=== PATIENT | male | born 1965 | race Caucasian/White ===

== ENCOUNTER 2020-04-06 09:08 | Emergency (ER) | payer OTHER, MEDICAID, SELFPAY ==
[2020-04-06 09:30] VITALS: BP 171/103; PULSE 91; RESP 17; TEMP 36.8; O2SAT 97; BMI 36.5
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
[2020-04-06 10:25] LABS: Add Manual Diff / Slide Review NO; Basophils Absolute Auto 100 /uL (0-100); Basophils Percent Auto 1.1 % (0-2); Eosinophils Absolute Auto 200 /uL (0-450); Eosinophils Percent Auto 1.7 % (2-4); Hematocrit 40.3 % (41-53); Hemoglobin 13.7 g/dL (13.5-17.5); Lymphocytes Absolute Auto 2000 /uL (1100-4500); Lymphocytes Percent Auto 21.5 % (25-40); Mean Corpuscular HGB Conc 33.9 % (30-36); Mean Corpuscular Hemoglobin 31.8 PG (26-34); Mean Corpuscular Volume 93.8 fL (80-100); Monocytes Absolute Auto 700 /uL (0-900); Monocytes Percent Auto 7.1 % (3-14); Neutrophils Absolute Auto 6300 /uL (1500-7000); Neutrophils Percent Auto 68.6 % (50-75); Platelet Count 262 X10^3/uL (150-400); Red Cell Distribution Width 14.3 % (11.6-14.8); White Blood Cell Count 9.2 X10^3/uL (4.5-11.0)
[2020-04-06] MEDS: VANCOMYCIN 1,000 MG/200 ML PIGGYBACK 200 MG IV (10:28)
[2020-04-06 10:30] VITALS: BP 170/96; PULSE 94; RESP 18; O2SAT 99
[2020-04-06 10:38] LABS: Lactate (Lactic Acid) 0.7 mmol/L (0.7-2.1)
[2020-04-06 10:39] LABS: Alanine Aminotransferase 17 IU/L (<50); Albumin 4.1 g/dL (3.5-5.0); Albumin Globulin Ratio 1.2 (1.0-2.8); Alkaline Phosphatase 105 U/L (38-126); Aspartate Aminotransferase 27 IU/L (17-59); BUN Creatinine Ratio 19.5 (6-22); Bilirubin Total 0.8 mg/dL (0.2-1.3); Blood Urea Nitrogen 15 mg/dL (9-20); C-Reactive Protein Quant 2.5 mg/dL (<1.0); Calcium 9.7 mg/dL (8.4-10.2); Carbon Dioxide 28 mmol/L (22-32); Chloride 106 mmol/L (98-107); Estimated Glomerular Filt Rate > 60.0 mL/min (>60); Globulin 3.5 g/dL (1.7-4.1); Glucose 103 mg/dL (70-100); HEMOLYSIS < 15 (0-50); Lipase 30 U/L (23-300); Potassium 3.7 mmol/L (3.4-5.1); Sodium 137 mmol/L (137-145); Total Protein 7.6 g/dL (6.3-8.2)
[2020-04-06 10:51] LABS: Procalcitonin < 0.05 ng/mL (<0.5)
[2020-04-06 10:54] LABS: Erythrocyte Sedimentation Rate 38 MM/HR (0-15)
[2020-04-06 11:30] VITALS: BP 161/89; PULSE 89; RESP 18; O2SAT 98
[2020-04-06 12:10] VITALS: BP 157/89; PULSE 87; RESP 17; O2SAT 98
--- NOTE | 2020-04-06 12:58 | PC.NURSE ---
1200 Patient up pacing in room, he states he cannot stay for admission he needs to smoke first. Also reports concerns about dog and I need to give my mom my keys, she's waiting out in the car. I informed him that he will need to have IV removed and check back in if he decides to leave the department. I also offered nicotine patch, and to give his keys to his mother in the parking lot. He refuses to stay. I informed him of need to sign AMA paperwork and went to inform Dr. Soares. Shortly after this, Dr. Soares was in room discussing AMA.
== END 2020-04-06 12:15 | disposition left against medical advice (07) ==
LOC: ED 11:16 → AC 12:04
PROVIDERS: Emergency Provider Emergency Medicine; Referring Provider Emergency Medicine
DX: L03.114 Cellulitis of left upper limb (principal)
CPT/HCPCS: 36415; 73130; 80053; 83605; 83690; 84145; 85025; 85651; 86140; 87040; 99281

== ENCOUNTER 2020-04-07 09:24 | Inpatient (IN) | payer OTHER, MEDICAID, SELFPAY ==
[2020-04-07 09:31] VITALS: BP 152/95; PULSE 104; RESP 16; TEMP 36.4; O2SAT 97; BMI 36.5
--- NOTE | 2020-04-07 09:44 | ED_ITS ---
HPI - General Adult General Chief complaint: Extremity Injury, Upper Stated complaint: Left hand issue Time Seen by Provider: 04/07/20 09:36 Source: patient Mode of arrival: Ambulatory Limitations: no limitations History of Present Illness HPI narrative: 54-year-old male who I evaluated in the emergency department y esterday for a left hand infection after injecting himself with heroin couple days prior who initially was going to be admitted for IV antibiotics within left against medical advice returns this morning stating that he is willing to be admitted today. He reports that the pain in his left hand has actually increased since the visit yesterday. The swelling has moved up his arm. Related Data Home Medications Medication Instructions Recorded Confirmed amlodipine [Norvasc] 10 mg PO DAILY 04/06/20 04/06/20 levothyroxine 200 mcg PO DAILY 04/06/20 04/06/20 methadone 140 mg PO DAILY 04/06/20 04/06/20 Allergies Allergy/AdvReac Type Severity Reaction Status Date / Time No Known Allergies Allergy Verified 04/06/20 09:40 Review of Systems Constitutional Constitutional: Denies fever(s) and Denies headache(s) ENT Ears, Nose, Mouth, and Throat: Denies headache(s) Cardiovascular Cardiovascular: Denies chest pain and Denies dyspnea Respiratory Respiratory: Denies dyspnea Gastrointestinal Gastrointestinal: Denies abdominal pain, Denies nausea and Denies vomiting Musculoskeletal Musculoskeletal: Reports tingling (Left hand) Comments: Left hand pain and swelling Integumentary/Breasts Comments: Redness to the left hand Neurologic Neurologic: Denies headache(s) and Reports tingling (Left hand) Hematologic/Lymphatic Hematologic/Lymphatic: Denies easy bleeding and Denies easy bruising Allergic/Immunologic Allergic/Immunologic: Denies urticaria Patient History Medical History Chronic kidney disease Drug abuse Hypothyroid Social History Smoking Status: Current every day smoker alcohol intake: never Smoking Status: Current every day smoker tobacco type: cigarettes alcohol intake frequency: other Substance Use Type: marijuana, heroin and amphetamines Exam Initial Vital Signs Initial Vital Signs: Vital Signs Temperature 97.5 F L 04/07/20 09:31 Pulse Rate 104 H 04/07/20 09:31 Respiratory Rate 16 04/07/20 09:31 Blood Pressure 152/95 H 04/07/20 09:31 Pulse Oximetry 97 04/07/20 09:31 Const General: comfortable Limitations: mental status not altered HENMT Head: normal to inspection and normocephalic Resp Effort & Inspection: normal respiratory effort Auscultation: clear to auscultation bilaterally Cardio Rate: tachycardic Rhythm: regular rhythm Pulses: radial pulses present on the left Skin Other: Redness in his left hand appears very similar to what it did yesterday. Mostly located on the dorsum along the fingers and hand of the thumb index and ring finger. Does have swelling that is now extending up to the mid forearm were yesterday was just proximal to the wrist. Neuro Sensory Exam: no sensory deficits noted Extrem General: edema Other: Redness and swelling of left hand Psych Appearance: grossly normal and disheveled Course Orders Ordered: ED Orders 04/07/20 10:05 C-Reactive Protein Quant Stat COVID19 Stat Complete Blood Count AUTO DIFF Stat Comprehensive Metabolic Panel Stat Erythrocyte Sedimentation Rate Stat Lactate (Lactic Acid) Stat Lipase Stat Procalcitonin Stat 04/07/20 10:54 Consult to Orthopedic Surgery Stat Sodium Chloride (Normal Saline 0.9%) 1,000 mls @ 125 mls/hr IV CONT PRIMO Last Infusion: 04/07/20 12:20 Dose: 125 mls/hr Documented by: Infusion: 04/07/20 11:57 Dose: 0 mls/hr Documented by: Admin: 04/07/20 10:18 Dose: 125 mls/hr Documented by: LENNY Discontinued Medications Ceftriaxone Sodium/Dextrose (Rocephin) 1 gm in 50 mls @ 100 mls/hr IV NOW ONE Stop: 04/07/20 10:11 Last Infusion: 04/07/20 10:53 Dose: 0 mls/hr Documented by: Admin: 04/07/20 10:19 Dose: 100 mls/hr Documented by: LENNY Vancomycin HCl (Vancomycin) 1,000 mg in 200 mls @ 200 mls/hr IV NOW ONE Stop: 04/07/20 10:40 Last Infusion: 04/07/20 11:56 Dose: 0 mls/hr Documented by: Admin: 04/07/20 10:46 Dose: 200 mls/hr Documented by: LENNY Vital Signs Vital signs: Vital Signs - 8 hr 04/07/20 09:31 Temperature 97.5 F L Pulse Rate 104 H Respiratory Rate 16 Blood Pressure 152/95 H Pulse Oximetry 97 Medical Decision Making Lab Data Lab results reviewed: Yes I reviewed the patient's lab results. Result diagrams: 04/07/20 10:05 04/07/20 10:05 Labs: Lab Results 04/07/20 04/07/20 04/07/20 Range/Units 10:05 10:05 10:05 WBC 9.7 (4.5-11.0) X10^3/uL RBC 4.50 (4.5-5.9) X10^6/uL Hgb 14.3 (13.5-17.5) g/dL Hct 42.3 (41-53) % MCV 94.1 (80-100) fL MCH 31.9 (26-34) PG MCHC 33.9 (30-36) % RDW 14.2 (11.6-14.8) % Plt Count 283 (150-400) X10^3/uL Neut % (Auto) 66.9 (50-75) % Lymph % (Auto) 22.6 L (25-40) % Price % (Auto) 7.5 (3-14) % Eos % (Auto) 2.1 (2-4) % Baso % (Auto) 0.9 (0-2) % Neut # (Auto) 6500 (6914-0532) /uL Lymph # (Auto) 2200 (3360-7940) /uL Price # (Auto) 700 (0-900) /uL Eos # (Auto) 200 (0-450) /uL Baso # (Auto) 100 (0-100) /uL ESR 44 H (0-15) MM/HR Sodium 140 (137-145) mmol/L Potassium 3.7 (3.4-5.1) mmol/L Chloride 106 (98-107) mmol/L Carbon Dioxide 30 (22-32) mmol/L BUN 15 (9-20) mg/dL Creatinine 0.80 (0.66-1.25) mg/dL Estimated GFR > 60.0 (>60) mL/min BUN/Creatinine Ratio 18.8 (6-22) Glucose 117 H (70-100) mg/dL Lactate (0.7-2.1) mmol/L Calcium 9.9 (8.4-10.2) mg/dL Total Bilirubin 0.5 (0.2-1.3) mg/dL AST 25 (17-59) IU/L ALT 19 (<50) IU/L Alkaline Phosphatase 107 (38-126) U/L C-Reactive Protein 2.6 H (<1.0) mg/dL Total Protein 7.9 (6.3-8.2) g/dL Albumin 4.1 (3.5-5.0) g/dL Globulin 3.8 (1.7-4.1) g/dL Albumin/Globulin Ratio 1.1 (1.0-2.8) Lipase 33 (23-300) U/L Procalcitonin < 0.05 (<0.5) ng/mL COVID-19 PCR (Negative) 04/07/20 04/07/20 Range/Units 10:05 10:05 WBC (4.5-11.0) X10^3/uL RBC (4.5-5.9) X10^6/uL Hgb (13.5-17.5) g/dL Hct (41-53) % MCV (80-100) fL MCH (26-34) PG MCHC (30-36) % RDW (11.6-14.8) % Plt Count (150-400) X10^3/uL Neut % (Auto) (50-75) % Lymph % (Auto) (25-40) % Price % (Auto) (3-14) % Eos % (Auto) (2-4) % Baso % (Auto) (0-2) % Neut # (Auto) (0039-7007) /uL Lymph # (Auto) (2123-1063) /uL Price # (Auto) (0-900) /uL Eos # (Auto) (0-450) /uL Baso # (Auto) (0-100) /uL ESR (0-15) MM/HR Sodium (137-145) mmol/L Potassium (3.4-5.1) mmol/L Chloride (98-107) mmol/L Carbon Dioxide (22-32) mmol/L BUN (9-20) mg/dL Creatinine (0.66-1.25) mg/dL Estimated GFR (>60) mL/min BUN/Creatinine Ratio (6-22) Glucose (70-100) mg/dL Lactate 1.0 (0.7-2.1) mmol/L Calcium (8.4-10.2) mg/dL Total Bilirubin (0.2-1.3) mg/dL AST (17-59) IU/L ALT (<50) IU/L Alkaline Phosphatase (38-126) U/L C-Reactive Protein (<1.0) mg/dL Total Protein (6.3-8.2) g/dL Albumin (3.5-5.0) g/dL Globulin (1.7-4.1) g/dL Albumin/Globulin Ratio (1.0-2.8) Lipase (23-300) U/L Procalcitonin (<0.5) ng/mL COVID-19 PCR Negative (Negative) MDM Narrative Medical decision making narrative: Patient returns today with the redness appearing the same as yesterday in his left hand however swelling now extending to his mid forearm. He is afebrile and again does not have a leukocytosis however the infection is left arm does seem to be worsening. He was given another dose of vancomycin and Rocephin this morning. He does agree to be admitted to the hospital on this day. Discussed the case with Dr. crouch with [facility] who will admit for further evaluation and treatment. Also discussed the case with Dr. Acevedo with Orthopedics who recommended MRI been consulting Orthopedics only of there is a abscess requiring drainage. Discharge Plan Departure Patient Disposition: Admitted As Inpatient Clinical Impression: Cellulitis Admit Date/Time: 04/07/20 10:57 Admit Provider: Galina Crouch
--- NOTE | 2020-04-07 10:01 | PC.NURSE ---
left hand is swollen , red and warm. pt reports he injected drugs into his hand. states he left [facility] yesterday and is back to stay today.
[2020-04-07 10:13] LABS: Add Manual Diff / Slide Review NO; Basophils Absolute Auto 100 /uL (0-100); Basophils Percent Auto 0.9 % (0-2); Eosinophils Absolute Auto 200 /uL (0-450); Eosinophils Percent Auto 2.1 % (2-4); Hematocrit 42.3 % (41-53); Hemoglobin 14.3 g/dL (13.5-17.5); Lymphocytes Absolute Auto 2200 /uL (1100-4500); Lymphocytes Percent Auto 22.6 % (25-40); Mean Corpuscular HGB Conc 33.9 % (30-36); Mean Corpuscular Hemoglobin 31.9 PG (26-34); Mean Corpuscular Volume 94.1 fL (80-100); Monocytes Absolute Auto 700 /uL (0-900); Monocytes Percent Auto 7.5 % (3-14); Neutrophils Absolute Auto 6500 /uL (1500-7000); Neutrophils Percent Auto 66.9 % (50-75); Platelet Count 283 X10^3/uL (150-400); Red Cell Distribution Width 14.2 % (11.6-14.8); White Blood Cell Count 9.7 X10^3/uL (4.5-11.0)
[2020-04-07] MEDS: SODIUM CHLORIDE 0.9% 1,000 ML 125 ML IV (10:18)
[2020-04-07] MEDS: CEFTRIAXONE 1 GM/50 ML FROZ.PIGGY IV (10:19)
[2020-04-07 10:27] LABS: COVID19 -Nasal RAPID Negative (Negative)
[2020-04-07 10:37] LABS: Alanine Aminotransferase 19 IU/L (<50); Albumin 4.1 g/dL (3.5-5.0); Albumin Globulin Ratio 1.1 (1.0-2.8); Alkaline Phosphatase 107 U/L (38-126); Aspartate Aminotransferase 25 IU/L (17-59); BUN Creatinine Ratio 18.8 (6-22); Bilirubin Total 0.5 mg/dL (0.2-1.3); Blood Urea Nitrogen 15 mg/dL (9-20); C-Reactive Protein Quant 2.6 mg/dL (<1.0); Calcium 9.9 mg/dL (8.4-10.2); Carbon Dioxide 30 mmol/L (22-32); Chloride 106 mmol/L (98-107); Estimated Glomerular Filt Rate > 60.0 mL/min (>60); Globulin 3.8 g/dL (1.7-4.1); Glucose 117 mg/dL (70-100); HEMOLYSIS < 15 (0-50); Lipase 33 U/L (23-300); Potassium 3.7 mmol/L (3.4-5.1); Sodium 140 mmol/L (137-145); Total Protein 7.9 g/dL (6.3-8.2)
[2020-04-07] MEDS: VANCOMYCIN 1,000 MG/200 ML PIGGYBACK 200 MG IV ×2 (10:46→18:54)
[2020-04-07 10:51] LABS: Procalcitonin < 0.05 ng/mL (<0.5)
[2020-04-07 10:53] LABS: Erythrocyte Sedimentation Rate 44 MM/HR (0-15)
[2020-04-07 11:52] VITALS: BP 169/101; PULSE 82; RESP 22; O2SAT 99
[2020-04-07 12:05] VITALS: BP 165/97; PULSE 75; RESP 16; TEMP 36; O2SAT 96
[2020-04-07 12:06] VITALS: BMI 36.5
--- NOTE | 2020-04-07 13:19 | DI.MRI.S_ITS ---
PROCEDURE: MR HAND LT WO/W CON INDICATIONS: r.o abcess, patient injected into left hand TECHNIQUE: Noncontrast coronal T1 spin echo and fat suppressed T2, sagittal T1 spin echo with fat saturation and STIR, axial T1 spin echo with fat saturation and T2 fast spin echo with fat saturation. After the administration of contrast, axial/sagittal/coronal T1 spin echo with fat saturation through the left hand. COMPARISON: None. FINDINGS: Image quality: Compromised by extensive patient motion despite repeat sequences being obtained. Some diagnostic information is obtained. Bones: No focal osseous edema or enhancement is seen to suggest osteomyelitis, although imaging is fat suppression is seen in the finger tips. Degenerative changes are seen at the 1st metacarpophalangeal and carpometacarpal joints. Soft tissues: Diffuse subcutaneous edema is seen throughout the hand that is more prominent at the dorsum of the hand and in the 2nd finger. No discrete fluid collection is identified to suggest abscess formation. The visualized muscles demonstrate normal bulk without abnormal edema or enhancement. The included ligaments and tendons, as visualized in the presence of patient motion, are grossly intact. IMPRESSION: Diffuse soft tissue edema throughout the hand that is more prominent in the index finger and the dorsum of the hand, which is suspicious for cellulitis. No discrete fluid collection is seen to suggest abscess formation. No definite involvement of deeper structures or signs of osteomyelitis are identified, although exam is partially compromised by patient motion. Dictated by: Guido Rai M.D. on 04/07/2020 at 16:33 Approved by: Guido Rai M.D. on 04/07/2020 at 16:41
--- NOTE | 2020-04-07 13:21 | P.HP_ITS ---
History of Present Illness History of Present Illness Date Patient Seen: 04/07/20 Chief complaint: Left hand issue Narrative: The patient is a 54-year-old male with a history of hypertension, hypothyroidism, hemochromatosis, chronic liver disease, history of myocardial infarction who relapsed on Sunday. The patient injected in to his ial infarction, history of intravenous drug use, patient reports he injected into his left finger on Sunday evening. He developed immediate swelling redness and pain. The patient presented to the emergency room last evening for evaluation. The emergency department recommended admission to the hospital for inpatient treatment of left hand cellulitis. The patient was given IV vancomycin in the emergency room. He refused to take oral medications. The patient left the emergency department against medical advice. Patient returned today with more swelling of the hand. Swelling had progressed up the hand and forearm. There was continued redness, and swelling of the entire left hand. The patient agreed to stay in the hospital. He was given IV vancomycin and ceftriaxone in the emergency room. A chest x-ray of the left hand yesterday revealed no pus although there was some air likely related to his injection site. The patient has been admitted to the hospital. Plans are underway for him to have an MRI of the left hand to rule out abscess. In the interim will continue IV vancomycin and IV Zosyn. He denies any nausea or vomiting. Complains of pain all over. Patient History Medical History (Updated 04/07/20 @ 14:02 by Galina Crouch MD) Chronic kidney disease Chronic liver disease Drug abuse Hemochromatosis Hypothyroid Myocardial infarction Family & Social History Family History (Updated 04/07/20 @ 14:03 by Galina Crouch MD) Father Colon cancer Other Cancer Social History: Prior Living Arrangements House Safety & Behavioral: Feels Safe in Current Yes Environment Been Physically Hurt or No Threatened By a Person Suicidal Ideation Description None Suicide Plan Description No Plan Tobacco & Substance use: Tobacco type cigarettes Smoking Status Current every day smoker Smoking packs per day 2 alcohol intake never alcohol intake frequency other Substance Use Type marijuana,amphetamines,heroin Meds Home Medications and Allergies Home Medications Medication Instructions Recorded Confirmed Type amlodipine [Norvasc] 10 mg PO DAILY 04/06/20 04/06/20 History levothyroxine 200 mcg PO DAILY 04/06/20 04/06/20 History methadone 140 mg PO DAILY 04/06/20 04/07/20 History Allergies Allergy/AdvReac Type Severity Reaction Status Date / Time No Known Allergies Allergy Verified 04/06/20 09:40 Review of Systems Review of Systems ROS: Yes All systems reviewed with the patient and are negative except as otherwise documented Exam Vital Signs (past 8 hours): - 04/07/20 09:31 04/07/20 11:52 04/07/20 12:05 Temperature 97.5 F L 96.8 F L Pulse Rate 104 H 82 75 Respiratory Rate 16 22 16 Blood Pressure 152/95 H 169/101 H 165/97 H Pulse Oximetry 97 99 96 Oxygen Delivery Method Room Air Oxygen Flow Rate 0 Narrative Exam Narrative: Ill-appearing male somewhat agitated minimally cooperative HEENT normocephalic atraumatic, extraocular muscles are intact, oropharynx is clear, moist mucous membrane Neck supple without adenopathy or thyromegaly Lungs: Clear to auscultation Cardiac exam: Regular rate and rhythm normal S1-S2 the 2/6 systolic ejection murmur Abdomen obese soft nontender nondistended, liver edge palpable Extremities: Lower extremity with dry skin, right thigh with an indurated 4 x 4 cm area of prior injection. Left leg with multiple track angel. Left hand swollen, there is edema over all digits over the dorsal surface of the hand with erythema, no fluctuance, swelling goes up the forearm. There is redness and warmth as well. Neuro exam: Is nonfocal Psychiatric exam: Patient is agitated, complains of pain, at times is irritable , no hallucinations, or delusions Objective Labs Result Diagrams: 04/07/20 10:05 04/07/20 10:05 Labs: Laboratory Results - last 24 hr 04/07/20 04/07/20 04/07/20 10:05 10:05 10:05 WBC 9.7 RBC 4.50 Hgb 14.3 Hct 42.3 MCV 94.1 MCH 31.9 MCHC 33.9 RDW 14.2 Plt Count 283 Neut % (Auto) 66.9 Lymph % (Auto) 22.6 L [place] % (Auto) 7.5 Eos % (Auto) 2.1 Baso % (Auto) 0.9 Neut # (Auto) 6500 Lymph # (Auto) 2200 [place] # (Auto) 700 Eos # (Auto) 200 Baso # (Auto) 100 ESR 44 H Sodium 140 Potassium 3.7 Chloride 106 Carbon Dioxide 30 BUN 15 Creatinine 0.80 Estimated GFR > 60.0 BUN/Creatinine Ratio 18.8 Glucose 117 H Lactate Calcium 9.9 Total Bilirubin 0.5 AST 25 ALT 19 Alkaline Phosphatase 107 C-Reactive Protein 2.6 H Total Protein 7.9 Albumin 4.1 Globulin 3.8 Albumin/Globulin Ratio 1.1 Lipase 33 Procalcitonin < 0.05 COVID-19 PCR 04/07/20 04/07/20 10:05 10:05 WBC RBC Hgb Hct MCV MCH MCHC RDW Plt Count Neut % (Auto) Lymph % (Auto) [place] % (Auto) Eos % (Auto) Baso % (Auto) Neut # (Auto) Lymph # (Auto) [place] # (Auto) Eos # (Auto) Baso # (Auto) ESR Sodium Potassium Chloride Carbon Dioxide BUN Creatinine Estimated GFR BUN/Creatinine Ratio Glucose Lactate 1.0 Calcium Total Bilirubin AST ALT Alkaline Phosphatase C-Reactive Protein Total Protein Albumin Globulin Albumin/Globulin Ratio Lipase Procalcitonin COVID-19 PCR Negative Assessment & Plan Assessment & Plan narrative: 54-year-old male admitted to the hospital with left hand cellulitis -patient with a history of IV DA -patient injected into the left hand there is swelling induration warmth and redness, -left hand x-ray negative yesterday -will obtain MRI of the left hand to rule out deep tissue infection, or abscess -if abscess pressure will consult surgery for I&D -will continue IV Vanco and ceftriaxone -will hold methadone, and continue IV Dilaudid, will resume methadone once he is off IV pain medication Hypertension -will continue amlodipine Hypothyroidism -continue levothyroxine Nicotine dependence -nicotine patch 21 mg daily given -counseled the patient regarding smoking cessation which he is amenable to Obesity -patient reports he has gained 60 lb over the last several months -consider nutrition consult following MRI status Patient is admitted as an inpatient He will be placed on DVT prophylaxis His mother was at the bedside who is his surrogate decision maker Patient is a full code will note that his record accordingly Quality VTE Deep Vein Thrombosis/Pulmonary Embolism Present on Admission: No
[2020-04-07] MEDS: diazePAM 5 MG TABLET PO (13:36)
[2020-04-07] MEDS: SODIUM CHLORIDE 0.9% 1,000 ML 100 ML IV (13:38)
[2020-04-07] MEDS: HYDROMORPHONE 1 MG INJ IV (13:57)
--- NOTE | 2020-04-07 14:20 | PC.NURSE ---
Patient became very angry and aggravated about him mom bringing up that she knew he injected into his hand. Was yelling and throwing objects at his mom. Patient was yelling at his mom. Patient started yelling at me, a code gongora was instituted because of behaviour. Patient was trying to rip out IV and rip gown off and was threatening to leave AMA. Patient's emotions were escalated. 5mg Valium PO given and 1mg IV dilaudid for pain in his hand. Patient is now quiet and resting.
--- NOTE | 2020-04-07 15:30 | PC.NURSE ---
Addendum entered by Emmett Tellez R.N. 04/07/20 16:24: BACK FROM MRI Original Note: TAKEN FOR MRI
[2020-04-07 16:32] VITALS: BP 121/77; PULSE 66; RESP 18; TEMP 36.8; O2SAT 97
[2020-04-07] MEDS: NICOTINE 21 MG PATCH TOP (16:32)
[2020-04-07] MEDS: PIPERACILLIN-TAZO 3.375 GM/50 ML FROZ.PIGGY IV ×2 (16:33→21:25)
[2020-04-07 16:38] VITALS: O2SAT 96
[2020-04-07] MEDS: OXYCODONE IR 5 MG TABLET 10 MG PO ×2 (17:21→21:25)
--- NOTE | 2020-04-07 17:35 | PM.CN ---
History of Present Illness Consult details Date Patient Seen: 04/07/20 Time Patient Seen: 17:35 Chief complaint: Left hand issue Reason for consult: Left hand cellulitis Requesting provider: Inder Soares Narrative: The patient is a 54-year-old gentleman with a history of IV drug use. On Sunday he attempted to inject into the dorsum of his left index finger. He subsequently developed redness and swelling on the dorsum of his left hand hand. He was evaluated for this at the emergency room yesterday (Sunday) and was initially to be admitted to the hospital for IV antibiotics however he left the emergency room against medical advice. He returned this morning with worsening of his swelling into the forearm. He has been admitted to the hospitalist service for IV antibiotics. Orthopedic consultation has been obtained to rule out deep space infection and the need for drainage of abscess. The patient denies fevers, chills or drainage from the arm. Meds Home Medications and Allergies Home Medications Medication Instructions Recorded Confirmed Type amlodipine [Norvasc] 10 mg PO DAILY 04/06/20 04/07/20 History levothyroxine 200 mcg PO DAILY 04/06/20 04/07/20 History methadone 140 mg PO DAILY 04/06/20 04/07/20 History Allergies Allergy/AdvReac Type Severity Reaction Status Date / Time No Known Allergies Allergy Verified 04/06/20 09:40 Review of Systems Review of Systems ROS: Yes All systems reviewed with the patient and are negative except as otherwise documented Exam Vital Signs (past 8 hours): - 04/07/20 11:52 04/07/20 12:05 04/07/20 16:32 Temperature 96.8 F L 98.3 F Pulse Rate 82 75 66 Respiratory Rate 22 16 18 Blood Pressure 169/101 H 165/97 H 121/77 Pulse Oximetry 99 96 97 04/07/20 16:38 Temperature Pulse Rate Respiratory Rate Blood Pressure Pulse Oximetry 96 Oxygen Delivery Method Room Air Oxygen Flow Rate 0 Narrative Exam Narrative: On physical examination the left upper extremity it is mildly swollen from the fingertips proximally to the mid forearm. There is mild erythema as well. This is mostly on the dorsum of the forearm and hand. He is mildly tender to palpation in the palm but the palmar spaces are soft to palpation. He has discomfort with motion of the fingers but no significant pain on passive extension of the fingers which would be consistent with flexor tenosynovitis. There is no palpable discrete abscess. Objective Labs Result Diagrams: 04/07/20 10:05 04/07/20 10:05 Labs: Laboratory Results - last 24 hr 04/07/20 04/07/20 04/07/20 10:05 10:05 10:05 WBC 9.7 RBC 4.50 Hgb 14.3 Hct 42.3 MCV 94.1 MCH 31.9 MCHC 33.9 RDW 14.2 Plt Count 283 Neut % (Auto) 66.9 Lymph % (Auto) 22.6 L [place] % (Auto) 7.5 Eos % (Auto) 2.1 Baso % (Auto) 0.9 Neut # (Auto) 6500 Lymph # (Auto) 2200 [place] # (Auto) 700 Eos # (Auto) 200 Baso # (Auto) 100 ESR 44 H Sodium 140 Potassium 3.7 Chloride 106 Carbon Dioxide 30 BUN 15 Creatinine 0.80 Estimated GFR > 60.0 BUN/Creatinine Ratio 18.8 Glucose 117 H Lactate Calcium 9.9 Total Bilirubin 0.5 AST 25 ALT 19 Alkaline Phosphatase 107 C-Reactive Protein 2.6 H Total Protein 7.9 Albumin 4.1 Globulin 3.8 Albumin/Globulin Ratio 1.1 Lipase 33 Procalcitonin < 0.05 COVID-19 PCR 04/07/20 04/07/20 10:05 10:05 WBC RBC Hgb Hct MCV MCH MCHC RDW Plt Count Neut % (Auto) Lymph % (Auto) [place] % (Auto) Eos % (Auto) Baso % (Auto) Neut # (Auto) Lymph # (Auto) [place] # (Auto) Eos # (Auto) Baso # (Auto) ESR Sodium Potassium Chloride Carbon Dioxide BUN Creatinine Estimated GFR BUN/Creatinine Ratio Glucose Lactate 1.0 Calcium Total Bilirubin AST ALT Alkaline Phosphatase C-Reactive Protein Total Protein Albumin Globulin Albumin/Globulin Ratio Lipase Procalcitonin COVID-19 PCR Negative MRI scan of the hand and distal forearm obtained today, April 07, 2020, shows subcutaneous edema consistent with cellulitis. This is restricted to the dorsum of the hand and forearm. There do not appear to be discrete fluid collections consistent with an abscess. There also does not appear to be any fluid in the deep compartments of the hand consistent with a palmar space infection. Assessment & Plan Assessment & Plan narrative: The patient has a cellulitis after attempting to inject into his left hand. There does not currently appear to be a discrete fluid collection requiring surgical drainage. Based on the examination and MRI today I would suggest this should improve with appropriate IV antibiotic therapy. I would suggest that the patient elevate his left hand above the level of his heart as much as possible. This will help with the edema and swelling. As at this point there does not appear to be a surgical indication, I will sign off. If there appears to be concern for an abscess developing later please feel free to contact the Orthopedic on-call physician. COVID-19 COVID-19 status: Negative Result date/Date tested (Pos, Neg/Pending): 04/07/20 Time Spent With Patient Time with patient: less than 15 minutes
[2020-04-07] MEDS: DOCUSATE 100 MG CAPSULE PO (21:25)
[2020-04-07 21:36] VITALS: BP 145/72; PULSE 76; RESP 18; TEMP 36.6; O2SAT 96
[2020-04-08] VITALS (9 sets, daily range): BP systolic 129–149; BP diastolic 72–97; PULSE 57–71; RESP 16–18; TEMP 36.3–36.9; O2SAT 93–97
[2020-04-08] MEDS: ACETAMINOPHEN 325 MG TABLET 650 MG PO ×2 (00:02→09:42)
[2020-04-08] MEDS: OXYCODONE IR 5 MG TABLET 10 MG PO ×8 (00:02→22:09)
[2020-04-08] MEDS: VANCOMYCIN 1,000 MG/200 ML PIGGYBACK 200 MG IV ×3 (04:40→18:45)
[2020-04-08] MEDS: PIPERACILLIN-TAZO 3.375 GM/50 ML FROZ.PIGGY IV ×4 (06:13→22:09)
[2020-04-08] MEDS: LEVOTHYROXINE 100 MCG TABLET 200 MCG PO (06:13)
[2020-04-08] MEDS: METHADONE INTENSOL 10 MG/ML ORAL.CONC 140 MG PO (08:01)
[2020-04-08] MEDS: ENOXAPARIN 40 MG/0.4 ML SYRINGE SUBCUT (08:10)
[2020-04-08] MEDS: NICOTINE 21 MG PATCH TOP (08:10)
[2020-04-08] MEDS: AMLODIPINE 5 MG TABLET 10 MG PO (08:11)
--- NOTE | 2020-04-08 09:29 | P.PN_ITS ---
Subjective Subjective Date Patient Seen: 04/08/20 Time Patient Seen: 09:30 Interval history: This is a 54-year-old male who was admitted with left upper extremity cellulitis secondary to intravenous drug use. He is improving on antibiotic therapy. MRI did not show any drainable fluid collection. Orthopedic surgery has signed off. His swelling is much improved today, he denies any systemic symptoms of fevers or chills this morning. He has no abdominal pain, nausea, vomiting. He will continue on Zosyn and vancomycin until there is further improvement in his swelling and redness. Exam Vital Signs (past 8 hours): - 04/08/20 04:11 04/08/20 08:16 Temperature 97.6 F 97.7 F Pulse Rate 57 L 71 Respiratory Rate 18 17 Blood Pressure 135/74 133/89 Pulse Oximetry 97 94 Oxygen Delivery Method Room Air Oxygen Flow Rate 0 Narrative Exam Narrative: Gen: chronically ill appearing male in no acute distress, cooperative and pleasant. HEENT normocephalic atraumatic, extraocular muscles are intact, oropharynx is clear, moist mucous membrane Neck supple without adenopathy or thyromegaly Lungs: Clear to auscultation Cardiac exam: Regular rate and rhythm normal S1-S2 the 2/6 systolic ejection murmur Abdomen obese soft nontender nondistended, liver edge palpable Extremities: Lower extremity with dry skin, right thigh with an indurated 4 x 4 cm area of prior injection. Left leg with multiple track angel. Left hand swollen, there is edema over all digits over the dorsal surface of the hand with erythema more prominent over the 2nd finger, no fluctuance, areas of prior edgar rcation show some improvement in cellulitis, now located primarily in the hand itself. Neuro exam: no focal deficits, alert Psychiatric exam: pleasant, cooperative with stable behavior. Skin: other than above areas no rashes, ulcerations. Objective Labs Result Diagrams: 04/07/20 10:05 04/07/20 10:05 Labs: Laboratory Results - last 24 hr 04/07/20 04/07/20 04/07/20 10:05 10:05 10:05 WBC 9.7 RBC 4.50 Hgb 14.3 Hct 42.3 MCV 94.1 MCH 31.9 MCHC 33.9 RDW 14.2 Plt Count 283 Neut % (Auto) 66.9 Lymph % (Auto) 22.6 L [place] % (Auto) 7.5 Eos % (Auto) 2.1 Baso % (Auto) 0.9 Neut # (Auto) 6500 Lymph # (Auto) 2200 [place] # (Auto) 700 Eos # (Auto) 200 Baso # (Auto) 100 ESR 44 H Sodium 140 Potassium 3.7 Chloride 106 Carbon Dioxide 30 BUN 15 Creatinine 0.80 Estimated GFR > 60.0 BUN/Creatinine Ratio 18.8 Glucose 117 H Lactate Calcium 9.9 Total Bilirubin 0.5 AST 25 ALT 19 Alkaline Phosphatase 107 C-Reactive Protein 2.6 H Total Protein 7.9 Albumin 4.1 Globulin 3.8 Albumin/Globulin Ratio 1.1 Lipase 33 Procalcitonin < 0.05 COVID-19 PCR 04/07/20 04/07/20 10:05 10:05 WBC RBC Hgb Hct MCV MCH MCHC RDW Plt Count Neut % (Auto) Lymph % (Auto) [place] % (Auto) Eos % (Auto) Baso % (Auto) Neut # (Auto) Lymph # (Auto) [place] # (Auto) Eos # (Auto) Baso # (Auto) ESR Sodium Potassium Chloride Carbon Dioxide BUN Creatinine Estimated GFR BUN/Creatinine Ratio Glucose Lactate 1.0 Calcium Total Bilirubin AST ALT Alkaline Phosphatase C-Reactive Protein Total Protein Albumin Globulin Albumin/Globulin Ratio Lipase Procalcitonin COVID-19 PCR Negative PFSH Medical History Chronic kidney disease Chronic liver disease Drug abuse Hemochromatosis Hypothyroid Myocardial infarction Family History Father Colon cancer Other Cancer Social History Smoking Status: Current every day smoker alcohol intake: never Assessment & Plan Assessment & Plan narrative: 54-year-old male admitted to the hospital with left hand cellulitis secondary to IV drug use improving on IV antibiotic therapy. 1. Left upper extremity cellulitis secondary to injection drug use, acute, present on admission, improving. -patient with a history of IV DA, injected into the left hand where there is now swelling, warmth, erythema. Now improving with IV antibiotics noted below. -left hand x-ray negative. MRI showing swelling but no fluid collections am enable to drainage. Appreciate orthopedic surgery evaluation, they have signed off. -will continue IV Vanco and zosyn -will hold methadone, and continue IV Dilaudid, will resume methadone once he is off IV pain medication, likely tomorrow. 2.Hypertension -will continue amlodipine 3. Hypothyroidism -continue levothyroxine 4. Nicotine dependence -nicotine patch 21 mg daily given -counseled the patient regarding smoking cessation which he is amenable to 5. Obesity -patient reports he has gained 60 lb over the last several months -continuous improvement coordinator consultation. Patient is admitted as an inpatient, anticipate discharge home in the next 1-2 days depending on improvement in swelling. Code: full, surrogate decision maker is the patient's mother. DVT: Lovenox daily. COVID-19 COVID-19 status: Negative Quality VTE Deep Vein Thrombosis/Pulmonary Embolism Present on Admission: No
[2020-04-08 11:23] LABS: Vancomycin Trough 10.7 ug/mL (10-20)
[2020-04-08] MEDS: SODIUM CHLORIDE 0.9% 1,000 ML 100 ML IV ×2 (11:38→22:11)
[2020-04-08] MEDS: VANCOMYCIN TROUGH 1 REQUEST MISC (11:44)
--- NOTE | 2020-04-08 12:36 | PC.NURSE ---
Wound Care. pt used call light to alert staff that a scab on his left should had opened up and was draining. pt stated it just opened up while he was trying to eat lunch and denied picking or scratching the area. I controlled the drainage with gauze, took photodocumentation of the new open area (pictures obtained with both the blue and silver acute care cameras), cleansed with saline and applied a 3x3 Allevyn to area. Wound area is warm and indurated and pt reporting pain to the area. Primary nurse notified of new open area. Gown and linen were changed due to drainage.
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
--- NOTE | 2020-04-08 13:58 | PC.NURSE ---
Patient had apparently refused labs this morning, notified Dr. Da Silva and okay to cancel for today and attempt again tomorrow.
[2020-04-08] MEDS: DOCUSATE 100 MG CAPSULE PO (18:45)
[2020-04-08] MEDS: SODIUM CHLORIDE 0.9% FLUSH 10 ML IV (18:46)
[2020-04-09] MEDS: OXYCODONE IR 5 MG TABLET 10 MG PO ×3 (01:08→08:45)
[2020-04-09] MEDS: SODIUM CHLORIDE 0.9% 1,000 ML 100 ML IV (01:12)
[2020-04-09] MEDS: VANCOMYCIN 1,000 MG/200 ML PIGGYBACK 200 MG IV ×2 (02:51→10:29)
[2020-04-09 03:00] VITALS: BP 121/73; PULSE 67; RESP 16; TEMP 37.1; O2SAT 96
[2020-04-09] MEDS: HYDROMORPHONE 1 MG INJ IV (03:08)
[2020-04-09] MEDS: PIPERACILLIN-TAZO 3.375 GM/50 ML FROZ.PIGGY IV ×2 (04:19→09:56)
[2020-04-09] MEDS: LEVOTHYROXINE 100 MCG TABLET 200 MCG PO (05:34)
[2020-04-09 07:40] VITALS: BP 169/112; PULSE 65; RESP 18; TEMP 35.9; O2SAT 98
[2020-04-09 08:30] VITALS: O2SAT 98
[2020-04-09] MEDS: ACETAMINOPHEN 325 MG TABLET 650 MG PO (08:44)
[2020-04-09] MEDS: METHADONE 10 MG TABLET 140 MG PO (08:44)
[2020-04-09] MEDS: ENOXAPARIN 40 MG/0.4 ML SYRINGE SUBCUT (08:44)
[2020-04-09] MEDS: AMLODIPINE 5 MG TABLET 10 MG PO (08:45)
[2020-04-09] MEDS: DOCUSATE 100 MG CAPSULE PO (08:45)
[2020-04-09] MEDS: NICOTINE 21 MG PATCH TOP (08:46)
--- NOTE | 2020-04-09 09:49 | PM.DS.1 ---
History of Present Illness History of Present Illness Date Patient Seen: 04/09/20 Time Patient Seen: 09:49 Chief complaint: Left hand issue Narrative: As per Dr. Crouch, The patient is a 54-year-old male with a history of hypertension, hypothyroidism, hemochromatosis, chronic liver disease, history of myocardial infarction who relapsed on Sunday. The patient injected in to his ial infarction, history of intravenous drug use, patient reports he injected into his left finger on Sunday evening. He developed immediate swelling redness and pain. The patient presented to the emergency room last evening for evaluation. The emergency department recommended admission to the hospital for inpatient treatment of left hand cellulitis. The patient was given IV vancomycin in the emergency room. He refused to take oral medications. The patient left the emergency department against medical advice. Patient returned today with more swelling of the hand. Swelling had progressed up the hand and forearm. There was continued redness, and swelling of the entire left hand. The patient agreed to stay in the hospital. He was given IV vancomycin and ceftriaxone in the emergency room. A chest x-ray of the left hand yesterday revealed no pus although there was some air likely related to his injection site. The patient has been admitted to the hospital. Plans are underway for him to have an MRI of the left hand to rule out abscess. In the interim will continue IV vancomycin and IV Zosyn. He denies any nausea or vomiting. Complains of pain all over. Discharge Providers Provider Date of admission: 04/07/20 10:57 Discharge Date: 04/09/20 Consults: 04/07/20 10:54 Consult to Orthopedic Surgery Stat Comment: Consulting Provider: Dung Acevedo Reason for consultation: cellulitis Has provider been notified: Yes 04/08/20 09:56 Consult to Dietitian, Adult Routine Comment: Reason For Exam: recent weight gain, obesity Discharge provider: Onur Da Silva DO Summary Hospital Course Discharge Diagnosis: Please see hospital course by problem list noted below. Hospital Course: 54-year-old male admitted to the hospital with left hand cellulitis secondary to IV drug use improved on IV antibiotic therapy. Stable for discharge home on continued oral therapy. 1. Left upper extremity cellulitis secondary to injection drug use, acute, present on admission, improving. -patient with a history of IV drug use, injected into the left hand where there was swelling, warmth, erythema on admission. Now improved with IV antibiotics noted below. -left hand x-ray negative. MRI showing swelling but no fluid collections amenable to drainage. Appreciate orthopedic surgery evaluation, they signed off. -continued on zosyn and vancomycin, discharge on augmentin and ciprofloxacin. There was no purulence and MRSA is less likely. Pain control was initially with IV opiates. Now improved pain and can resume home methadone at previous dosing. 2.Hypertension, chronic -continue amlodipine, he was hypertensive during admission likely due to pain. Recommend outpatient follow up in a few weeks for repeat blood pressure check. 3. Hypothyroidism, chronic -continue levothyroxine, no changes recommended. 4. Nicotine dependence, chronic. -nicotine patch 21 mg daily given during admission. -counseled the patient regarding smoking cessation which he was amenable. 5. Obesity with BMI of 36.5, present on admission. -patient reports he has gained 60 lb over the last several months -manager furniture consultation appreciated. 6.Opiate abuse, chronic - continue home methadone 140 mg daily. Held initially while receiving IV pain medications initially. Exam Vital Signs (past 8 hours): - 04/09/20 03:00 04/09/20 07:40 04/09/20 08:30 Temperature 98.7 F 96.6 F L Pulse Rate 67 65 Respiratory Rate 16 18 Blood Pressure 121/73 169/112 H Pulse Oximetry 96 98 98 Oxygen Delivery Method Room Air Oxygen Flow Rate 0 Narrative Exam Narrative: Gen: chronically ill appearing male in no acute distress, cooperative and pleasant. HEENT normocephalic atraumatic, extraocular muscles are intact, oropharynx is clear, moist mucous membrane Neck supple without adenopathy or thyromegaly Lungs: Clear to auscultation bilaterally. Cardiac exam: Regular rate and rhythm normal S1-S2 the 2/6 systolic ejection murmur Abdomen obese soft nontender nondistended, liver edge palpable Extremities: Lower extremity with dry skin, right thigh with an indurated 4 x 4 cm area of prior injection now improved. Left leg with multiple track angel. Left hand swelling markedly improved. Almost full range of motion with minimal tenderness. Mild erythema still over 2nd digit. No induration or purulence noted. Neuro exam: no focal deficits, alert Psychiatric exam: pleasant, cooperative with stable behavior. Skin: other than above areas no rashes, ulcerations. Objective Labs Result Diagrams: 04/07/20 10:05 04/07/20 10:05 Labs: Laboratory Results - last 24 hr 04/08/20 10:30 Vancomycin Trough 10.7 PFSH Medical History Chronic kidney disease Chronic liver disease Drug abuse Hemochromatosis Hypothyroid Myocardial infarction Family History Father Colon cancer Other Cancer Social History household members: none Smoking Status: Current every day smoker alcohol intake: never Discharge Plan Discharge Plan Patient Disposition: Home Provider Discharge Comment: You were admitted to the hospital with cellulitis in your hand. You improved with IV antibiotics. You are being discharged home with an additional week of oral therapy. Please follow up with your primary care provider as soon as possible. Avoid IV drug use. Discharge orders & Medications Prescriptions: New amoxicillin-pot clavulanate 875-125 mg tablet 1 tab PO BID 7 Days Qty: 14 RF: 0 ciprofloxacin HCl 500 mg tablet 500 mg PO BID 7 Days Qty: 14 RF: 0 Continued amlodipine [Norvasc] 10 mg tablet 10 mg PO DAILY RF: 0 levothyroxine 100 mcg tablet 200 mcg PO DAILY RF: 0 methadone 10 mg tablet 140 mg PO DAILY RF: 0 Diet/Activity/Treatments Diet: Diet as Tolerated Activity: As tolerated Visit Report/Discharge Packet Instructions: DI for Cellulitis -- Adult Quality VTE Deep Vein Thrombosis/Pulmonary Embolism Present on Admission: No
[2020-04-09] MEDS: ONDANSETRON 4 MG/2 ML INJ IV (09:56)
--- NOTE | 2020-04-09 11:13 | PC.NURSE ---
Addendum entered by Norah Sheridan R.N. 04/09/20 12:14: Pt ready to d/c home. Already has his ride scheduled to the clinic for methadone and [facility] was called but no return yet. Pt's only concern was yesterday the day nurse had given his mother some of his confidential information about his drug use and he was unhappy about that. SIsn't there a law against something like that? Otherwise voiced no concerns. Reports his hand has improved, less red and swollen. He did get his IV antibiotics prior to leaving. Reviewed discharge packet, meds have been esent. Mother here to pick him up. Pt d/c home without incident. Original Note: [facility] called at [phone]. There is no answer, only voice mail and there is no message on phone saying this is a secure line. She is notified pt is being d/c home today but methadone wasn't mentioned, only d/c. It was passed in report she needed to be notified as she works with pt and is responsible for his care with methadone dosing.
--- NOTE | 2020-04-09 15:09 | CM.DPC ---
DCP Discharge Home Per MD, pt is medically stable to d/c home on oral abx today after final dose of IV-Abx and no identified barriers to discharge. Per RN, been attempting contact with Sobeida at [facility] to coordinate Methadone tx and left msg but pt has transport set up with mother today for discharge and will go to [facility] at d/c prior to going home to [place]. No identified barriers or concerns. Plan: Patient to d/c home today via mother's POV and ongoing coordination with [facility] for Methadone tx for daily doses. Deandra Lutz MSW
== END 2020-04-09 12:10 | disposition home or self-care (01) | DRG 383 ==
LOC: ED 10:32 → AC 15:58
PROVIDERS: Admitting Provider Internal Medicine; Emergency Provider Emergency Medicine; Visit Provider Internal Medicine
DX: L03.114 Cellulitis of left upper limb (principal); E83.119 Hemochromatosis, unspecified; E66.9 Obesity, unspecified; Z68.36 Body mass index [BMI] 36.0-36.9, adult; F11.10 Opioid abuse, uncomplicated; E03.9 Hypothyroidism, unspecified; I10 Essential (primary) hypertension; F17.210 Nicotine dependence, cigarettes, uncomplicated; Z11.59 Encounter for screening for other viral diseases; I25.2 Old myocardial infarction
CPT/HCPCS: 36415; 73130; 73220; 80053; 80202; 83605; 83690; 84145; 85025; 85651; 86140; 87040; 87635; 96365; 96367; 99281; 99284; G0378; J1170; J1650; J2405; J2543

== ENCOUNTER 2020-04-14 10:59 | Emergency (ER) | payer OTHER, MEDICAID, SELFPAY ==
[2020-04-14 11:02] VITALS: BP 140/72; PULSE 56; RESP 15; TEMP 36.6; O2SAT 97; BMI 36.5
--- NOTE | 2020-04-14 11:46 | ED.ABDPAIN ---
HPI - Abdominal Pain General Chief Complaint: Abdominal Pain Stated Complaint: Abd pain,chills and nausea Time Seen by Provider: 04/14/20 11:42 Source: patient Mode of arrival: EMS Limitations: no limitations History of Present Illness HPI narrative: The patient arrives by EMS with a complaint of epigastric abdominal pain. He takes Methadone for chronic back pain. He was at the methadone clinic when 911 was called for him. Upon arrival, the pain is subsiding. He was recently mid this facility with left him cellulitis. After initial treatment with IV antibiotics, he was discharged on Cipro and Augmentin. He has experienced significant abdominal discomfort from the antibiotics. He had abdominal discomfort today after taking the pills, he was having that pain upon arrival to clinic. He has no chest pain. He has no nausea vomiting with abdominal pain. Pain is now subsided. He has been skipping doses due to the abdominal pain. He has no prior history of medication allergies. He has no chest pain, dyspnea, airway tightness or rash. It is notable that he has not IV drug abuser. Cellulitis initiated on the left index finger where he injected himself. Related Data Home Medications Medication Instructions Recorded Confirmed amlodipine [Norvasc] 10 mg PO DAILY 04/06/20 04/07/20 levothyroxine 200 mcg PO DAILY 04/06/20 04/07/20 methadone 140 mg PO DAILY 04/06/20 04/07/20 Previous Rx's Medication Instructions Recorded amoxicillin-pot clavulanate 1 tab PO BID 7 Days #14 tab 04/09/20 ciprofloxacin HCl 500 mg PO BID 7 Days #14 tab 04/09/20 sulfamethoxazole-trimethoprim 1 tab PO BID 7 Days #14 tab 04/14/20 Allergies Allergy/AdvReac Type Severity Reaction Status Date / Time unknown antibiotic Allergy Uncoded 04/14/20 11:07 Review of Systems Constitutional Constitutional: Denies chills, Denies fever(s) and Denies weakness ENT Comments: No headache. No ENT complaints. Cardiovascular Cardiovascular: Denies chest pain, Denies irregular heart rhythm, Denies lightheadedness and Denies dyspnea Respiratory Respiratory: Denies cough, Denies dyspnea and Denies wheezing Gastrointestinal Gastrointestinal: Denies nausea and Denies vomiting Comments: Abdominal pain, see HPI. Genitourinary Comments: No urinary symptoms. Musculoskeletal Comments: No back pain. Integumentary/Breasts Skin/Breast: Denies erythema (Left index finger) and Denies rash Neurologic Neurologic: Denies weakness Allergic/Immunologic Allergic/Immunologic: Denies wheezing Patient History Medical History (Updated 04/14/20 @ 12:13 by Iglesia Fitch MD) Chronic back pain Chronic kidney disease Chronic liver disease Drug abuse Hemochromatosis Hypothyroid Methadone maintenance therapy patient Myocardial infarction Family History Father Colon cancer Other Cancer Social History household members: none Smoking Status: Current every day smoker alcohol intake: never Smoking Status: Current every day smoker tobacco type: cigarettes alcohol intake frequency: other Substance Use Type: former substance user, marijuana, heroin and amphetamines Exam Initial Vital Signs Initial Vital Signs: Vital Signs Temperature 97.8 F 04/14/20 11:02 Pulse Rate 56 L 04/14/20 11:02 Respiratory Rate 15 04/14/20 11:02 Blood Pressure 140/72 04/14/20 11:02 Pulse Oximetry 97 04/14/20 11:02 Const General: cooperative and well developed Nutritional Appearance: well nourished [facility] Head: normocephalic and atraumatic Resp Auscultation: clear to auscultation bilaterally Cardio Rate: regular rate Rhythm: regular rhythm Heart Sounds: S1 normal and S2 normal GI Inspection: non-distended Palpation: soft, no hepatosplenomegaly and No guarding Auscultation: normal bowel sounds Back/Spine/Pelvis Other: Normal Skin Other: Cellulitis to the left index finger. There is erythema to the dorsal, proximal finger. There is no induration. He has normal range of motion at the MCP and PIP joints. No extension of erythema to the left hand. Course Course Course Narrative: The patient doing much better with abdominal pain at time of admission. He was given a GI cocktail. From his history, the abdominal discomfort is associated with his antibiotics. I am going to change his antibiotics. I will start him on Septra DS. Blood cultures with his and admission about 2 weeks ago her negative. There were no wound cultures. Orders Ordered: Discontinued Medications Al Hydrox/Mg Hydrox/Simethicone 20 ml/ Lidocaine HCl 15 ml 0 ml PO NOW ONE Stop: 04/14/20 11:46 Last Admin: 04/14/20 11:51 Dose: 35 ml Documented by: JADE Ondansetron HCl (Ondansetron 4 Mg Odt) 4 mg SL NOW ONE Stop: 04/14/20 12:16 Last Admin: 04/14/20 12:18 Dose: 4 mg Documented by: JADE Trimethoprim/Sulfamethoxazole (Trimeth/Sulfa 160/800 (Ds) Tablet) 1 tab PO NOW ONE Stop: 04/14/20 11:55 Last Admin: 04/14/20 12:00 Dose: 1 tab Documented by: JADE Vital Signs Vital signs: Vital Signs - 8 hr 04/14/20 11:02 04/14/20 12:23 Temperature 97.8 F Pulse Rate 56 L 74 Respiratory Rate 15 18 Blood Pressure 140/72 143/79 H Pulse Oximetry 97 98 Discharge Plan Departure Patient Disposition: Home Clinical Impression: Cellulitis of left index finger Gastritis Qualifiers: Gastritis type: other gastritis Chronicity: acute Gastritis bleeding: without bleeding Qualified Code(s): K29.00 - Acute gastritis without bleeding Instructions: Cellulitis, DI for Gastritis Activity Restrictions/Additional Instructions: Stop taking your current antibiotics, Augmentin and Cipro. Take Septra DS 2 times daily for 7 days. Take the medications after eating. Drink plenty of water. Return the ER as needed. Prescriptions: New sulfamethoxazole-trimethoprim 800-160 mg tablet 1 tab PO BID 7 Days Qty: 14 RF: 0 No Action amoxicillin-pot clavulanate 875-125 mg tablet 1 tab PO BID 7 Days Qty: 14 RF: 0 ciprofloxacin HCl 500 mg tablet 500 mg PO BID 7 Days Qty: 14 RF: 0 amlodipine [Norvasc] 10 mg tablet 10 mg PO DAILY RF: 0 levothyroxine 100 mcg tablet 200 mcg PO DAILY RF: 0 methadone 10 mg tablet 140 mg PO DAILY RF: 0
[2020-04-14] MEDS: MAG HYDROX/ALUMINUM/SIMETH SUS 20 ML, LIDOCAINE VISCOUS 2% 15 ML PO (11:51)
[2020-04-14] MEDS: TRIMETH/SULFA 160/800 (DS) TABLET 1 TAB PO (12:00)
[2020-04-14] MEDS: ONDANSETRON 4 MG ODT SL (12:18)
[2020-04-14 12:23] VITALS: BP 143/79; PULSE 74; RESP 18; O2SAT 98
== END 2020-04-14 12:24 | disposition home or self-care (01) ==
PROVIDERS: Emergency Provider Emergency Medicine
DX: L03.012 Cellulitis of left finger (principal); K29.00 Acute gastritis without bleeding; M54.9 Dorsalgia, unspecified
CPT/HCPCS: 99281; 99283

== ENCOUNTER 2021-06-17 06:04 | Emergency (ER) | payer OTHER, MEDICAID, SELFPAY ==
[2021-06-17 06:12] VITALS: BP 200/110; PULSE 98; RESP 20; TEMP 36.6; O2SAT 99
[2021-06-17] MEDS: BUPIVACAINE 0.5% W/ EPI (PF) 30 ML VIAL 5 ML SUBCUT (06:41)
--- NOTE | 2021-06-17 06:52 | ED_ITS ---
HPI - Dental/Oral General Chief complaint: Dental/Oral Stated complaint: bad tooth ache right side Time Seen by Provider: 06/17/21 06:23 Source: patient Mode of arrival: Ambulatory History of Present Illness HPI Narrative: Patient is a 55-year-old male who has chronic pain on methadone presenting today with dental pain. He has chronic dental issues he has had increasing dental pain the last couple of days. He says he cannot take antibiotics because he self-diagnosed is that he has C diff over the Internet. He has never had a stool sample taken. He says nothing else helps for pain. He can not get into a dentist for a couple days. He is happy to have dental block. He has no facial swelling no fever. Related Data Home Medications Medication Instructions Recorded Confirmed amlodipine 10 mg tablet (Norvasc) 10 mg PO DAILY 04/06/20 04/07/20 levothyroxine 100 mcg tablet 200 mcg PO DAILY 04/06/20 04/07/20 methadone 10 mg tablet 140 mg PO DAILY 04/06/20 04/07/20 Allergies Allergy/AdvReac Type Severity Reaction Status Date / Time unknown antibiotic Allergy Uncoded 04/14/20 11:07 Review of Systems Review of Systems Narrative: GENERAL: Denies chills,fever HEENT: See HPI RESPIRATORY: Denies dyspnea, cough, wheezing CARDIOVASCULAR: Denies chest pain, palpitations GASTROINTESTINAL: Denies nausea, vomiting MUSCULOSKELETAL: Denies extremity pain, injury SKIN: No rash, no laceration, no pruritus NEUROLOGIC: Denies weakness, dizziness, headache, numbness 8 point review of systems is negative except for those stated above and HPI Patient History Medical History Chronic back pain Chronic kidney disease Chronic liver disease Drug abuse Hemochromatosis Hypothyroid Methadone maintenance therapy patient Myocardial infarction Family History Father Colon cancer Other Cancer Social History household members: none Smoking Status: Current every day smoker alcohol intake: never Smoking Status: Current every day smoker tobacco type: cigarettes alcohol intake frequency: other Substance Use Type: former substance user, marijuana, heroin and amphetamines Exam Initial Vital Signs Initial Vital Signs: Vital Signs Temperature 98 F 06/17/21 06:12 Pulse Rate 98 H 06/17/21 06:12 Respiratory Rate 20 06/17/21 06:12 Blood Pressure 200/110 H 06/17/21 06:12 Pulse Oximetry 99 06/17/21 06:12 GENERAL: Well-appearing, well-nourished and in no acute distress. MOUTH: Multiple missing teeth no significant facial swelling CARDIOVASCULAR: peripheral pulses in tact, cap refill <2 sec RESPIRATORY: No respiratory distress, speaks in full sentences without difficulty EXTREMITIES: Normal range of motion, no clubbing or edema. Neurovascularly intact NEUROLOGICAL: Cranial nerves II through XII grossly intact. Normal gait and s peech. SKIN: Warm, dry, no petechiae, no rashes or lesions. Procedures Nerve Block Nerve Block 1: Local Anesthetic: bupivacaine 0.5% and with epi Amount of anesthesia used (mL): 2 Side: right Intraoral Nerve Block: supraperiosteal Course Orders Ordered: Discontinued Medications Bupivacaine HCl (Bupivacaine 0.5% Mdv) 5 ml SUBCUT NOW ONE Stop: 06/17/21 06:38 Bupivacaine HCl/Epinephrine Bitart (Bupivacaine 0.5% W/ Epi (Pf) 30 Ml Vial) 5 ml SUBCUT NOW ONE Stop: 06/17/21 06:39 Last Admin: 06/17/21 06:41 Dose: 5 ml Documented by: KELECHI Vital Signs Vital signs: Vital Signs - 8 hr 06/17/21 06:12 Temperature 98 F Pulse Rate 98 H Respiratory Rate 20 Blood Pressure 200/110 H Pulse Oximetry 99 MDM - Dental/Oral MDM Narrative Medical decision making narrative: Patient does not have any significant facial pain swelling no dental abscess noted. No need for acute antibiotic. He also has not had explosive diarrhea here in the ER. He had significant relief with dental block Discharge Plan Departure Patient Disposition: Home Clinical Impression: Pain, dental Instructions: DI for Dental Pain Activity Restrictions/Additional Instructions: *You have been diagnosed with dental pain *What to do: You may need antibiotics if your pain does not improve. Please see your dentist on Sunday as scheduled *Continue to take medications as directed *Follow up with your primary care provider in 2-3 days or call [phone] *Return to ER if you should have increasing facial pain swelling fever or any n ew, worsening or concerning symptoms Prescriptions: No Action amlodipine [Norvasc] 10 mg tablet 10 mg PO DAILY 0RF Label Comments: take 1 tablet by mouth once daily for high blood pressure levothyroxine 100 mcg tablet 200 mcg PO DAILY 0RF methadone 10 mg tablet 140 mg PO DAILY 0RF Label Comments: take 1 tablet by mouth twice a day if needed for pain - FILL ON OR AFTER 10/24/2019
== END 2021-06-17 07:45 | disposition home or self-care (01) ==
PROVIDERS: Emergency Provider Emergency Medicine
DX: K08.89 Other specified disorders of teeth and supporting structures (principal)
CPT/HCPCS: 64450; 99281; 99282

== ENCOUNTER → 2021-06-27 06:12 | Outpatient (CLI) | payer OTHER, MEDICAID, SELFPAY ==
--- NOTE | 2021-06-27 06:15 | DI.RAD.S_ITS ---
PROCEDURE: XR CERVICAL SPINE 4V OR 5V INDICATIONS: cervical pain (neck) TECHNIQUE: 5 views of the cervical spine acquired. COMPARISON: None. FINDINGS: Bones: No fractures or dislocations to the C6 level. Mild uncovertebral/facet arthrosis, most prominent at C3 -5. Minimal grade 1 anterolisthesis at C3-5. Soft tissues: No prevertebral soft tissue swelling. IMPRESSION: Cervical spine degeneration as detailed above. Dictated by: Jatinder Davila M.D. on 06/27/2021 at 9:20 Approved by: Jatinder Davila M.D. on 06/27/2021 at 9:23
== END ==
PROVIDERS: Referring Provider Physician Assistant; Visit Provider Physician Assistant
DX: M47.812 Spondylosis without myelopathy or radiculopathy, cervical region (principal); M54.2 Cervicalgia
CPT/HCPCS: 72050

== ENCOUNTER 2021-09-14 14:12 | Inpatient (IN) | payer MEDICAID, SELFPAY ==
[2021-09-14] VITALS (9 sets, daily range): BP systolic 147–169; BP diastolic 91–115; PULSE 78–102; RESP 13–18; TEMP 36.1–36.6; O2SAT 90–97; BMI 37.4
--- NOTE | 2021-09-14 17:22 | DI.CT.S_ITS ---
PROCEDURE: CT LE RT WO CON INDICATIONS: rt upper leg cellulitis TECHNIQUE: Noncontrast 3 mm axial sections acquired of the right thigh/femur , with coronal and sagittal reformats. COMPARISON: None. FINDINGS: Image quality: Excellent. Bones: No acute, displaced fracture or dislocation. No cortical irregularity to suggest osteomyelitis. Small suprapatellar joint joint effusion. Soft tissues: Reticulated and confluent soft tissue density along with skin thickening is seen predominantly in the anterior soft tissues, compatible with cellulitis/edema. No well-formed fluid collection is seen to suggest an abscess. Right greater than left inguinal lymph nodes, likely reactive. IMPRESSION: Reticulated and confluent soft tissue density along with skin thickening, predominantly in the anterior soft tissues, compatible with cellulitis/edema. Dictated by: Jatinder Davila M.D. on 09/14/2021 at 17:58 Approved by: Jatinder Davila M.D. on 09/14/2021 at 18:01
[2021-09-14 17:43] LABS: Add Manual Diff / Slide Review NO; Basophils Absolute Auto 200 /uL (0-100); Basophils Percent Auto 1.3 % (0-2); Eosinophils Absolute Auto 100 /uL (0-450); Eosinophils Percent Auto 1.2 % (2-4); Hemoglobin 14.1 g/dL (13.5-17.5); Lymphocytes Absolute Auto 2400 /uL (1100-4500); Lymphocytes Percent Auto 19.6 % (25-40); Mean Corpuscular HGB Conc 34.4 % (30-36); Mean Corpuscular Hemoglobin 31.3 PG (26-34); Mean Corpuscular Volume 91.1 fL (80-100); Monocytes Absolute Auto 1100 /uL (0-900); Neutrophils Absolute Auto 8500 /uL (1500-7000); Neutrophils Percent Auto 68.9 % (50-75); Platelet Count 250 X10^3/uL (150-400); Red Cell Distribution Width 13.6 % (11.6-14.8); White Blood Cell Count 12.4 X10^3/uL (4.5-11.0)
[2021-09-14] MEDS: OXYCODONE IR 5 MG TABLET PO (17:46)
[2021-09-14] MEDS: SODIUM CHLORIDE 0.9% 1,000 ML 1000 ML IV (17:47)
--- NOTE | 2021-09-14 17:52 | ED.SKABFB ---
HPI - Skin/Abscess/Foreign Bdy <CHANDAN Mcfadden - Last Filed: 09/14/21 20:40> General Chief complaint: Skin/Abscess/Foreign Body Stated complaint: Rt thigh pain, swelling Time Seen by Provider: 09/14/21 17:14 Source: patient Mode of arrival: Ambulatory Limitations: no limitations History of Present Illness HPI narrative: This is a 55-year-old male with remote history of IV drug use now on methadone, has history of cellulitis and skin infections in the past, presents to the emergency department today stating he has had a right upper leg infection for the last 4 days, over the last 24 hours it has turned red hot, increased in size, it is currently outlined and patient was sent to the emergency department for evaluation of bacteremia. Patient states that he thinks he has C diff diarrhea because he has explosive diarrhea any time he takes an oral antibiotic. He states that he has had this issue for many years, but he does fine with IV antibiotics. Patient states that he does not know how this infection got started, he denies any known trauma or break in the skin. Related Data Home Medications Medication Instructions Recorded Confirmed amlodipine 10 mg tablet (Norvasc) 10 mg PO DAILY 04/06/20 09/14/21 levothyroxine 100 mcg tablet 200 mcg PO DAILY 04/06/20 09/14/21 methadone 10 mg tablet 145 mg PO DAILY 04/06/20 09/14/21 Allergies Allergy/AdvReac Type Severity Reaction Status Date / Time unknown antibiotic Allergy Uncoded 04/14/20 11:07 Review of Systems <CHANDAN Mcfadden - Last Filed: 09/14/21 20:40> Review of Systems Narrative: General: denies fever, chills, malaise, sweats, fatigue Head/Neck: denies headache, neck pain, dizziness Eyes: denies visual changes, eye pain Cardio: denies chest pain, palpitations, edema Respiratory: denies dyspnea, cough, orthopnea GI: denies abdominal pain, nausea, vomiting, or diarrhea : denies dysuria, hematuria, urinary retention, frequency or incontinence MSK: denies joint pain, muscle weakness Skin: Endorses large area on right upper leg that is red, raised, tender, approximately 10 in x 12 in on the anterior thigh Neuro: denies numbness, tingling Patient History <CHANDAN Mcfadden - Last Filed: 09/14/21 20:40> Medical History Cellulitis of right thigh Chronic back pain Chronic kidney disease Chronic liver disease Drug abuse Essential hypertension Hemochromatosis Hypothyroid IVDU (intravenous drug user) Methadone maintenance therapy patient Myocardial infarction Family History Father Colon cancer Other Cancer Social History household members: none Smoking Status: Current every day smoker alcohol intake: never Smoking Status: Current every day smoker tobacco type: cigarettes alcohol intake frequency: other Substance Use Type: marijuana Exam <CHANDAN Mcfadden - Last Filed: 09/14/21 20:40> Narrative Exam Narrative: Independently reviewed vitals signs and nursing notes. General: cooperative, comfortable, in no acute distress, well developed and well groomed Head: atraumatic, symmetrical facial expressions Neck: supple, atraumatic, without lymphadenopathy. Eyes: pupils equal round and reactive, EOMI, conjunctiva normal Nose: nares patent, no rhinorrhea Mouth/Throat: uvula midline, moist mucus membranes Cardiovascular: regular rate and rhythm, no peripheral edema, warm extremities Respiratory: normal effort, able to speak in complete sentences, no audible wheezing, stridor, or rales. No retractions or tachypnea. GI: abdomen soft, nontender to palpation, nondistended, no masses, no exquisite tenderness with exam, without guarding or rebound. MSK: moves all extremities, ambulatory w/steady gait, neurovascularly intact, no weakness Skin: Large erythematous area is firm, outlined with a marker on patient's right upper leg near his groin, does not extend into his groin without any fluctuance or open wound. Right lower distal extremity with Brisk capillary refill, no rash, no erythema Neuro: normal speech and cognition, A&O x3, normal tone Psych: mental status is grossly normal, congruent mood, normal affect, pleasant and cooperative Initial Vital Signs Initial Vital Signs: Vital Signs Temperature 97.8 F 09/14/21 14:24 Pulse Rate 102 H 09/14/21 14:24 Respiratory Rate 18 09/14/21 14:24 Blood Pressure 169/93 H 09/14/21 14:24 Pulse Oximetry 96 09/14/21 14:24 <Jaclyn Weinstein DO - Last Filed: 09/15/21 08:38> Initial Vital Signs Initial Vital Signs: Vital Signs Temperature 97.8 F 09/14/21 14:24 Pulse Rate 102 H 09/14/21 14:24 Respiratory Rate 18 09/14/21 14:24 Blood Pressure 169/93 H 09/14/21 14:24 Pulse Oximetry 96 09/14/21 14:24 Course <CHANDAN Mcfadden - Last Filed: 09/14/21 20:40> Orders Ordered: Acetaminophen (Acetaminophen 325 Mg Tablet) 650 mg PO Q6HR [facility] Last Admin: 09/15/21 03:18 Dose: 650 mg Documented by: Admin: 09/15/21 02:53 Dose: Not Given Documented by: HARLEY Amlodipine Besylate (Amlodipine 5 Mg Tablet) 10 mg PO DAILY [facility] Last Admin: 09/15/21 08:25 Dose: 10 mg Documented by: VELIA Docusate Sodium (Docusate 100 Mg Capsule) 100 mg PO BID [facility] Last Admin: 09/15/21 08:25 Dose: 100 mg Documented by: Admin: 09/14/21 23:36 Dose: Not Given Documented by: HARLEY Enoxaparin Sodium (Enoxaparin 40 Mg/0.4 Ml Syringe) 40 mg SUBCUT DAILY [facility] Last Admin: 09/15/21 08:25 Dose: 40 mg Documented by: VELIA Ketorolac Tromethamine (Ketorolac 30 Mg/Ml Vial) 30 mg IV Q6H PRN PRN Reason: Pain, Moderate (4-6) Stop: 09/19/21 22:08 Levothyroxine Sodium (Levothyroxine 100 Mcg Tablet) 200 mcg PO 0600 [facility] Lidocaine (Lidocaine Patch 1 Each Adh..Patch) 1 each TOP DAILY [facility] Last Admin: 09/15/21 08:25 Dose: 1 each Documented by: VELIA Methadone HCl (Methadone 5 Mg Tablet) 5 mg PO DAILY [facility] Last Admin: 09/15/21 08:25 Dose: 5 mg Documented by: Admin: 09/15/21 05:31 Dose: 5 mg Documented by: HARLEY Methadone HCl (Methadone 10 Mg Tablet) 140 mg PO 0530 [facility] Last Admin: 09/15/21 05:31 Dose: 140 mg Documented by: HARLEY Naloxone HCl (Naloxone 0.4 Mg/Ml Vial) 0.2 mg IV Q2MIN PRN PRN Reason: Opiate Reversal Ondansetron HCl (Ondansetron 4 Mg/2 Ml Inj) 4 mg IV Q8HR PRN PRN Reason: Nausea And Vomiting Sennosides (Sennosides 8.6 Mg Tablet) 17.2 mg PO BEDTIME [facility] Last Admin: 09/14/21 23:36 Dose: Not Given Documented by: HARLEY Discontinued Medications Ceftriaxone Sodium (Ceftriaxone 1,000 Mg Vial) 500 mg IM NOW ONE Stop: 09/14/21 19:29 Last Admin: 09/14/21 20:33 Dose: 500 mg Documented by: RYAN Sodium Chloride (Normal Saline 0.9%) 1,000 mls @ 1,000 mls/hr IV BOLUS ONE Stop: 09/14/21 18:27 Last Infusion: 09/14/21 18:20 Dose: 0 mls/hr Documented by: Admin: 09/14/21 17:47 Dose: 1,000 mls/hr Documented by: JADE Vancomycin HCl/Dextrose (Vancomycin) 2,000 mg in 400 mls @ 200 mls/hr IV NOW ONE Stop: 09/14/21 19:59 Last Admin: 09/15/21 02:54 Dose: Not Given Documented by: HARLEY Ceftriaxone Sodium 1,000 mg/ (Sodium Chloride) 100 mls @ 200 mls/hr IV NOW ONE Stop: 09/14/21 17:52 Last Admin: 09/15/21 06:49 Dose: Not Given Documented by: VELIA Vancomycin HCl/Dextrose (Vancomycin) 2,000 mg in 400 mls @ 200 mls/hr IV NOW ONE Stop: 09/15/21 04:59 Last Infusion: 09/15/21 06:33 Dose: 200 mls/hr Documented by: Admin: 09/15/21 03:20 Dose: 200 mls/hr Documented by: HARLEY Levothyroxine Sodium (Levothyroxine 100 Mcg Tablet) 200 mcg PO DAILY [facility] Last Admin: 09/15/21 08:25 Dose: 200 mcg Documented by: VELIA Lidocaine HCl (Lidocaine 1% (Pf) 5 Ml) 2.1 ml INJ NOW ONE Stop: 09/14/21 19:29 Last Admin: 09/14/21 20:35 Dose: 2.1 ml Documented by: RYAN Morphine Sulfate (Morphine 2 Mg/Ml Inj) 2 mg IV Q4H PRN PRN Reason: Breakthrough pain only (8-10) Oxycodone HCl (Oxycodone Ir 5 Mg Tablet) 5 mg PO NOW ONE Stop: 09/14/21 17:23 Last Admin: 09/14/21 17:46 Dose: 5 mg Documented by: JADE Oxycodone HCl (Oxycodone Ir 5 Mg Tablet) 5 mg PO Q4HR PRN PRN Reason: Pain, Severe (7-10) Oxycodone/Acetaminophen (Oxycodone/Acetaminophen 5/325 Tablet) 1 tab PO Q4HR PRN PRN Reason: Pain, Moderate (4-6) Last Admin: 09/14/21 19:06 Dose: 1 tab Documented by: JADE Penicillin G Benzathine (Penicillin G Benzathine 1,200,000 Unit/2 Ml Syringe) 1,200,000 unit IM NOW ONE Stop: 09/14/21 17:23 Last Admin: 09/14/21 18:40 Dose: Not Given Documented by: JADE Penicillin G Benzathine (Penicillin G Benzathine 1,200,000 Unit/2 Ml Syringe) 1,200,000 unit IM NOW ONE Stop: 09/14/21 18:40 Last Admin: 09/14/21 18:40 Dose: 1,200,000 unit Documented by: JADE Potassium Chloride (Potassium Chloride 20 Meq/15 Ml Udc) 20 meq PO NOW ONE Stop: 09/14/21 18:54 Last Admin: 09/14/21 19:06 Dose: 20 meq Documented by: JADE Tramadol HCl (Tramadol 50 Mg Tablet) 50 mg PO Q4H PRN PRN Reason: Pain, Moderate (4-6) Vancomycin HCl (Vancomycin Per Pharmacy) 1 request MISC NOW ONE Stop: 09/14/21 17:23 Last Admin: 09/14/21 19:07 Dose: 1 request Documented by: JADE Vital Signs Vital signs: Vital Signs - 8 hr 09/14/21 14:24 09/14/21 18:45 Temperature 97.8 F Pulse Rate 102 H 81 Respiratory Rate 18 Blood Pressure 169/93 H Pulse Oximetry 96 95 <Jaclyn Weinstein DO - Last Filed: 09/15/21 08:38> Orders Ordered: Acetaminophen (Acetaminophen 325 Mg Tablet) 650 mg PO Q6HR [facility] Last Admin: 09/15/21 03:18 Dose: 650 mg Documented by: Admin: 09/15/21 02:53 Dose: Not Given Documented by: HARLEY Amlodipine Besylate (Amlodipine 5 Mg Tablet) 10 mg PO DAILY [facility] Last Admin: 09/15/21 08:25 Dose: 10 mg Documented by: VELIA Docusate Sodium (Docusate 100 Mg Capsule) 100 mg PO BID [facility] Last Admin: 09/15/21 08:25 Dose: 100 mg Documented by: Admin: 09/14/21 23:36 Dose: Not Given Documented by: HARLEY Enoxaparin Sodium (Enoxaparin 40 Mg/0.4 Ml Syringe) 40 mg SUBCUT DAILY [facility] Last Admin: 09/15/21 08:25 Dose: 40 mg Documented by: VELIA Ketorolac Tromethamine (Ketorolac 30 Mg/Ml Vial) 30 mg IV Q6H PRN PRN Reason: Pain, Moderate (4-6) Stop: 09/19/21 22:08 Levothyroxine Sodium (Levothyroxine 100 Mcg Tablet) 200 mcg PO 0600 [facility] Lidocaine (Lidocaine Patch 1 Each Adh..Patch) 1 each TOP DAILY [facility] Last Admin: 09/15/21 08:25 Dose: 1 each Documented by: VELIA Methadone HCl (Methadone 5 Mg Tablet) 5 mg PO DAILY [facility] Last Admin: 09/15/21 08:25 Dose: 5 mg Documented by: Admin: 09/15/21 05:31 Dose: 5 mg Documented by: HARLEY Methadone HCl (Methadone 10 Mg Tablet) 140 mg PO 0530 [facility] Last Admin: 09/15/21 05:31 Dose: 140 mg Documented by: HARLEY Naloxone HCl (Naloxone 0.4 Mg/Ml Vial) 0.2 mg IV Q2MIN PRN PRN Reason: Opiate Reversal Ondansetron HCl (Ondansetron 4 Mg/2 Ml Inj) 4 mg IV Q8HR PRN PRN Reason: Nausea And Vomiting Sennosides (Sennosides 8.6 Mg Tablet) 17.2 mg PO BEDTIME [facility] Last Admin: 09/14/21 23:36 Dose: Not Given Documented by: HARLEY Discontinued Medications Ceftriaxone Sodium (Ceftriaxone 1,000 Mg Vial) 500 mg IM NOW ONE Stop: 09/14/21 19:29 Last Admin: 09/14/21 20:33 Dose: 500 mg Documented by: RYAN Sodium Chloride (Normal Saline 0.9%) 1,000 mls @ 1,000 mls/hr IV BOLUS ONE Stop: 09/14/21 18:27 Last Infusion: 09/14/21 18:20 Dose: 0 mls/hr Documented by: Admin: 09/14/21 17:47 Dose: 1,000 mls/hr Documented by: JADE Vancomycin HCl/Dextrose (Vancomycin) 2,000 mg in 400 mls @ 200 mls/hr IV NOW ONE Stop: 09/14/21 19:59 Last Admin: 09/15/21 02:54 Dose: Not Given Documented by: HARLEY Ceftriaxone Sodium 1,000 mg/ (Sodium Chloride) 100 mls @ 200 mls/hr IV NOW ONE Stop: 09/14/21 17:52 Last Admin: 09/15/21 06:49 Dose: Not Given Documented by: VELIA Vancomycin HCl/Dextrose (Vancomycin) 2,000 mg in 400 mls @ 200 mls/hr IV NOW ONE Stop: 09/15/21 04:59 Last Infusion: 09/15/21 06:33 Dose: 200 mls/hr Documented by: Admin: 09/15/21 03:20 Dose: 200 mls/hr Documented by: HARLEY Levothyroxine Sodium (Levothyroxine 100 Mcg Tablet) 200 mcg PO DAILY [facility] Last Admin: 09/15/21 08:25 Dose: 200 mcg Documented by: VELIA Lidocaine HCl (Lidocaine 1% (Pf) 5 Ml) 2.1 ml INJ NOW ONE Stop: 09/14/21 19:29 Last Admin: 09/14/21 20:35 Dose: 2.1 ml Documented by: RYAN Morphine Sulfate (Morphine 2 Mg/Ml Inj) 2 mg IV Q4H PRN PRN Reason: Breakthrough pain only (8-10) Oxycodone HCl (Oxycodone Ir 5 Mg Tablet) 5 mg PO NOW ONE Stop: 09/14/21 17:23 Last Admin: 09/14/21 17:46 Dose: 5 mg Documented by: JADE Oxycodone HCl (Oxycodone Ir 5 Mg Tablet) 5 mg PO Q4HR PRN PRN Reason: Pain, Severe (7-10) Oxycodone/Acetaminophen (Oxycodone/Acetaminophen 5/325 Tablet) 1 tab PO Q4HR PRN PRN Reason: Pain, Moderate (4-6) Last Admin: 09/14/21 19:06 Dose: 1 tab Documented by: JADE Penicillin G Benzathine (Penicillin G Benzathine 1,200,000 Unit/2 Ml Syringe) 1,200,000 unit IM NOW ONE Stop: 09/14/21 17:23 Last Admin: 09/14/21 18:40 Dose: Not Given Documented by: JADE Penicillin G Benzathine (Penicillin G Benzathine 1,200,000 Unit/2 Ml Syringe) 1,200,000 unit IM NOW ONE Stop: 09/14/21 18:40 Last Admin: 09/14/21 18:40 Dose: 1,200,000 unit Documented by: JADE Potassium Chloride (Potassium Chloride 20 Meq/15 Ml Udc) 20 meq PO NOW ONE Stop: 09/14/21 18:54 Last Admin: 09/14/21 19:06 Dose: 20 meq Documented by: JADE Tramadol HCl (Tramadol 50 Mg Tablet) 50 mg PO Q4H PRN PRN Reason: Pain, Moderate (4-6) Vancomycin HCl (Vancomycin Per Pharmacy) 1 request MISC NOW ONE Stop: 09/14/21 17:23 Last Admin: 09/14/21 19:07 Dose: 1 request Documented by: JADE Vital Signs Vital signs: Vital Signs - 8 hr 09/14/21 14:24 09/14/21 18:45 Temperature 97.8 F Pulse Rate 102 H 81 Respiratory Rate 18 Blood Pressure 169/93 H Pulse Oximetry 96 95 MDM - Skin/Abscess/Foreign Bdy <CHANDAN Mcfadden - Last Filed: 09/14/21 20:40> Lab Data Result diagrams: 09/15/21 05:20 05/05/22 05:20 Labs: Lab Results 09/14/21 09/14/21 09/14/21 Range/Units 17:15 17:15 17:15 WBC 12.4 H (4.5-11.0) X10^3/uL RBC 4.50 (4.5-5.9) X10^6/uL Hgb 14.1 (13.5-17.5) g/dL Hct 41.0 (41-53) % MCV 91.1 (80-100) fL MCH 31.3 (26-34) PG MCHC 34.4 (30-36) % RDW 13.6 (11.6-14.8) % Plt Count 250 (150-400) X10^3/uL Neut % (Auto) 68.9 (50-75) % Lymph % (Auto) 19.6 L (25-40) % [place] % (Auto) 9.0 (3-14) % Eos % (Auto) 1.2 L (2-4) % Baso % (Auto) 1.3 (0-2) % Neut # (Auto) 8500 H (3836-7040) /uL Lymph # (Auto) 2400 (9223-4052) /uL [place] # (Auto) 1100 H (0-900) /uL Eos # (Auto) 100 (0-450) /uL Baso # (Auto) 200 H (0-100) /uL Sodium 140 (137-145) mmol/L Potassium 3.3 L (3.4-5.1) mmol/L Chloride 105 (98-107) mmol/L Carbon Dioxide 32 (22-32) mmol/L BUN 13 (9-20) mg/dL Creatinine 0.85 (0.66-1.25) mg/dL Estimated GFR > 60 (>60) mL/min BUN/Creatinine Ratio 15.3 (6-22) Glucose 88 (70-100) mg/dL Lactate 1.1 (0.7-2.1) mmol/L Calcium 9.6 (8.4-10.2) mg/dL Total Bilirubin 0.9 (0.2-1.3) mg/dL AST 21 (17-59) IU/L ALT 17 (<50) IU/L Alkaline Phosphatase 90 (38-126) U/L Total Protein 7.7 (6.3-8.2) g/dL Albumin 4.2 (3.5-5.0) g/dL Globulin 3.5 (1.7-4.1) g/dL Albumin/Globulin Ratio 1.2 (1.0-2.8) Procalcitonin 0.08 (<0.5) ng/mL SARS-CoV-2 (PCR) (Negative) 09/14/21 Range/Units 17:50 WBC (4.5-11.0) X10^3/uL RBC (4.5-5.9) X10^6/uL Hgb (13.5-17.5) g/dL Hct (41-53) % MCV (80-100) fL MCH (26-34) PG MCHC (30-36) % RDW (11.6-14.8) % Plt Count (150-400) X10^3/uL Neut % (Auto) (50-75) % Lymph % (Auto) (25-40) % [place] % (Auto) (3-14) % Eos % (Auto) (2-4) % Baso % (Auto) (0-2) % Neut # (Auto) (1702-2032) /uL Lymph # (Auto) (1897-2794) /uL [place] # (Auto) (0-900) /uL Eos # (Auto) (0-450) /uL Baso # (Auto) (0-100) /uL Sodium (137-145) mmol/L Potassium (3.4-5.1) mmol/L Chloride (98-107) mmol/L Carbon Dioxide (22-32) mmol/L BUN (9-20) mg/dL Creatinine (0.66-1.25) mg/dL Estimated GFR (>60) mL/min BUN/Creatinine Ratio (6-22) Glucose (70-100) mg/dL Lactate (0.7-2.1) mmol/L Calcium (8.4-10.2) mg/dL Total Bilirubin (0.2-1.3) mg/dL AST (17-59) IU/L ALT (<50) IU/L Alkaline Phosphatase (38-126) U/L Total Protein (6.3-8.2) g/dL Albumin (3.5-5.0) g/dL Globulin (1.7-4.1) g/dL Albumin/Globulin Ratio (1.0-2.8) Procalcitonin (<0.5) ng/mL SARS-CoV-2 (PCR) Negative (Negative) Imaging Data Abdominal x-ray: Radiologist's Impression: PROCEDURE:? CT LE RT WO CON ? INDICATIONS:? rt upper leg cellulitis ? TECHNIQUE:? Noncontrast 3 mm axial sections acquired of the right thigh/femur , with coronal and sagittal reformats. ? ? COMPARISON:? None. ? FINDINGS:? Image quality:? Excellent.? ? Bones:? No acute, displaced fracture or dislocation.? No cortical irregularity to suggest osteomyelitis. Small suprapatellar joint joint effusion. ? Soft tissues:? Reticulated and confluent soft tissue density along with skin thickening is seen predominantly in the anterior soft tissues, compatible with cellulitis/edema.? No well-formed fluid collection is seen to suggest an abscess. Right greater than left inguinal lymph nodes, likely reactive. ? IMPRESSION:? Reticulated and confluent soft tissue density along with skin thickening, predominantly in the anterior soft tissues, compatible with cellulitis/edema.? ? Dictated by: Jatinder Davila M.D. on 09/14/2021 at 17:58 ? ? Approved by: Jatinder Davila M.D. on 09/14/2021 at 18:01 ? ECG Data Interpretation: EKG independently reviewed by myself at [] reveals normal sinus rhythm at [] bpm with regular axis and intervals. No STEMI, ST segment changes, arrhythmia, or acute ischemic changes. [facility] Narrative Medical decision making narrative: This is a 55-year-old male with remote history of IV drug use who presents to the emergency department with a right upper leg cellulitis which is concerning for necrotizing fasciitis. Patient has a history of cellulitis, has a leukocytosis of 12.4 with a left shift, CT imaging significant for reticulated and compliant soft tissue density along with skin thickening, predominantly in the anterior soft tissues compatible with cellulitis/edema. Patient has a potassium of 3.3. Patient has a prior history of IV drug use now is on methadone, he was given oxycodone the emergency department for his pain which he tolerated well. An IV line was started by ultrasound PICC RN and on return to the emergency department from CT scan, it was clotted and no longer working. Due to patient's IV drug history, he was a very difficult IV start, and there are no options for a peripheral IV start or pain for the next 6-8 hours. 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 A C diff PCR was ordered, and is still pending. Patient instead received IM penicillin G, IM Rocephin, and is pending PICC placement., consultation with the ER doctor for central line access and a central line attempt will be made prior to admission upstairs. Patient has had no hypotension, procalcitonin and lactate are not indicative of sepsis at this time. Patient was given 20 mEq of potassium for a potassium of 3.3. Consult with Dr. Alva for admission, he accepts for observation. <Jaclyn Weinstein, DO - Last Filed: 09/15/21 08:38> Lab Data Labs: Lab Results 09/14/21 09/14/21 09/14/21 Range/Units 17:15 17:15 17:15 WBC 12.4 H (4.5-11.0) X10^3/uL RBC 4.50 (4.5-5.9) X10^6/uL Hgb 14.1 (13.5-17.5) g/dL Hct 41.0 (41-53) % MCV 91.1 (80-100) fL MCH 31.3 (26-34) PG MCHC 34.4 (30-36) % RDW 13.6 (11.6-14.8) % Plt Count 250 (150-400) X10^3/uL Neut % (Auto) 68.9 (50-75) % Lymph % (Auto) 19.6 L (25-40) % [place] % (Auto) 9.0 (3-14) % Eos % (Auto) 1.2 L (2-4) % Baso % (Auto) 1.3 (0-2) % Neut # (Auto) 8500 H (6525-4886) /uL Lymph # (Auto) 2400 (6128-6179) /uL [place] # (Auto) 1100 H (0-900) /uL Eos # (Auto) 100 (0-450) /uL Baso # (Auto) 200 H (0-100) /uL Sodium 140 (137-145) mmol/L Potassium 3.3 L (3.4-5.1) mmol/L Chloride 105 (98-107) mmol/L Carbon Dioxide 32 (22-32) mmol/L BUN 13 (9-20) mg/dL Creatinine 0.85 (0.66-1.25) mg/dL Estimated GFR > 60 (>60) mL/min BUN/Creatinine Ratio 15.3 (6-22) Glucose 88 (70-100) mg/dL Lactate 1.1 (0.7-2.1) mmol/L Calcium 9.6 (8.4-10.2) mg/dL Total Bilirubin 0.9 (0.2-1.3) mg/dL AST 21 (17-59) IU/L ALT 17 (<50) IU/L Alkaline Phosphatase 90 (38-126) U/L Total Protein 7.7 (6.3-8.2) g/dL Albumin 4.2 (3.5-5.0) g/dL Globulin 3.5 (1.7-4.1) g/dL Albumin/Globulin Ratio 1.2 (1.0-2.8) Procalcitonin 0.08 (<0.5) ng/mL SARS-CoV-2 (PCR) (Negative) 09/14/21 Range/Units 17:50 WBC (4.5-11.0) X10^3/uL RBC (4.5-5.9) X10^6/uL Hgb (13.5-17.5) g/dL Hct (41-53) % MCV (80-100) fL MCH (26-34) PG MCHC (30-36) % RDW (11.6-14.8) % Plt Count (150-400) X10^3/uL Neut % (Auto) (50-75) % Lymph % (Auto) (25-40) % [place] % (Auto) (3-14) % Eos % (Auto) (2-4) % Baso % (Auto) (0-2) % Neut # (Auto) (5059-0334) /uL Lymph # (Auto) (8583-5145) /uL [place] # (Auto) (0-900) /uL Eos # (Auto) (0-450) /uL Baso # (Auto) (0-100) /uL Sodium (137-145) mmol/L Potassium (3.4-5.1) mmol/L Chloride (98-107) mmol/L Carbon Dioxide (22-32) mmol/L BUN (9-20) mg/dL Creatinine (0.66-1.25) mg/dL Estimated GFR (>60) mL/min BUN/Creatinine Ratio (6-22) Glucose (70-100) mg/dL Lactate (0.7-2.1) mmol/L Calcium (8.4-10.2) mg/dL Total Bilirubin (0.2-1.3) mg/dL AST (17-59) IU/L ALT (<50) IU/L Alkaline Phosphatase (38-126) U/L Total Protein (6.3-8.2) g/dL Albumin (3.5-5.0) g/dL Globulin (1.7-4.1) g/dL Albumin/Globulin Ratio (1.0-2.8) Procalcitonin (<0.5) ng/mL SARS-CoV-2 (PCR) Negative (Negative) Discharge Plan Departure Patient Disposition: Admitted as Observation Clinical Impression: Cellulitis Admit Date/Time: 09/14/21 18:46 Admit Provider: Onur Da Silva <Jaclyn Weinstein DO - Last Filed: 09/15/21 08:38> Cosign ED Attending Mile[place] Attestation: I was immediately available in the department for consultation. Documentation has been reviewed. I agree with assessment and plan.
[2021-09-14 17:55] LABS: Alanine Aminotransferase 17 IU/L (<50); Albumin 4.2 g/dL (3.5-5.0); Albumin Globulin Ratio 1.2 (1.0-2.8); Alkaline Phosphatase 90 U/L (38-126); Aspartate Aminotransferase 21 IU/L (17-59); BUN Creatinine Ratio 15.3 (6-22); Bilirubin Total 0.9 mg/dL (0.2-1.3); Blood Urea Nitrogen 13 mg/dL (9-20); Calcium 9.6 mg/dL (8.4-10.2); Carbon Dioxide 32 mmol/L (22-32); Chloride 105 mmol/L (98-107); Estimated Glomerular Filt Rate > 60 mL/min (>60); Globulin 3.5 g/dL (1.7-4.1); Glucose 88 mg/dL (70-100); HEMOLYSIS < 15 (0-50); Lactate (Lactic Acid) 1.1 mmol/L (0.7-2.1); Potassium 3.3 mmol/L (3.4-5.1); Sodium 140 mmol/L (137-145); Total Protein 7.7 g/dL (6.3-8.2)
[2021-09-14 18:15] LABS: Procalcitonin 0.08 ng/mL (<0.5)
[2021-09-14] MEDS: PENICILLIN G BENZATHINE 1,200,000 UNIT/2 ML SYRINGE 1200000 UNIT IM (18:40)
--- NOTE | 2021-09-14 18:57 | CM.IDA ---
DCP Assessment Patient is 55 y/o male who resides in [place], [place] at [facility] through [facility]. Patient presents to ED due to concern for leg infection on upper right leg. Patient has hx of IV drug use, cellulitis and skin infections. Patient currently engaged in Methadone tx at [facility]. Patient has Medicaid and [employer] insurances. Per Edward, patient's listed PCP is CHANDAN Avelar. Due to concern for patient's cellulits and need for a PICC line, patient has been accepted by hospitalist for admission to acute care. Plan: f/u with POC pending patient's medical clearance. No reported DCP needs at this time. JULIA Culp Discharge Planning/Care Management CM Discharge Assessment Start: 09/14/21 18:54 Freq: Status: Active Protocol: Document 09/14/21 18:54 LN (Rec: 09/14/21 18:57 LN [id number]) Discharge Planning Assessment Assigned Manager Beverage JULIA Barton Advance Directives? No Advance Directives on File No History Provided By Patient,Medical Record Has Patient been admitted in last 30 No days? Prior Living Arrangements Apartment/Condo Household Members none Type of transporation used prior to Drives own vehicle admit Independent with ADL's Yes Is patient alert and oriented? Yes Comment Patient receives MAT and methadone tx from [facility] Discharge Plan Home Review Status In Process Please Provide Date Initial DC 09/14/21 Assessment Was Performed Next Review Type Continued Stay Review
[2021-09-14] MEDS: OXYCODONE/ACETAMINOPHEN 5/325 TABLET 1 TAB PO (19:06)
[2021-09-14] MEDS: POTASSIUM CHLORIDE 20 MEQ/15 ML UDC PO (19:06)
[2021-09-14] MEDS: VANCOMYCIN PER PHARMACY 1 REQUEST MISC (19:07)
[2021-09-14 19:46] LABS: COVID19 -Nasal RAPID Negative (Negative)
[2021-09-14] MEDS: cefTRIAXone 1,000 MG VIAL 500 MG IM (20:33)
[2021-09-14] MEDS: LIDOCAINE 1% (PF) 5 ML 2.1 ML INJ (20:35)
--- NOTE | 2021-09-14 21:47 | P.HP_ITS ---
History of Present Illness History of Present Illness Date Patient Seen: 09/14/21 Time Patient Seen: 21:47 Chief complaint: Rt thigh pain, swelling Narrative: Chacho Bautista is a 55 y.o. male with a history of IVDU, apparently last use 2-3 weeks ago, hypertension and hypothyroidism presents today with a 4 day history of increased pain, swelling, and erythema of the right upper anterior thigh. States it became intolerable today. Per the ED provider, the patient did not have IV access after returning from [place] and they were unable to get IV access, so he was administered IM penicillin and ceftriaxone in the ED. He denies fever, sweats or chills, difficulty breathing, difficulty swallowing, but states taking oral antibiotics gives him clostridium difficile, has chronic back pain with parestesias to his feet and is on methadone maintenance therapy, now on 145 mg/day, states used to take 200 mg/day. CT of the right lower extremity reported Reticulated and confluent soft tissue density along with skin thickening, predominantly in the anterior soft tissues, compatible with cellulitis/edema.. He is afebrile, blood pressure 147/115, heart rate 81, respiratory rate 18, oxygen saturation 97% on room air he weighs 109 kg with a BMI of 37.4. His WBC is mildly elevated at 12.4, mild left shift of 8500, potassium was 3.3 for which he was repleted with oral potassium in the emergency department, procalcitonin was 0.08, and COVID-19 PCR is negative. Patient History Medical History Cellulitis of right thigh Chronic back pain Chronic kidney disease Chronic liver disease Drug abuse Essential hypertension Hemochromatosis Hypothyroid IVDU (intravenous drug user) Methadone maintenance therapy patient Myocardial infarction Family & Social History Family History Father Colon cancer Other Cancer Social History: household members none Prior Living Arrangements Apartment/Condo Safety & Behavioral: Feels Safe in Current Yes Environment Been Physically Hurt or No Threatened By a Person Tobacco & Substance use: Tobacco type cigarettes Smoking Status Current every day smoker alcohol intake never alcohol intake frequency other Substance Use Type marijuana Meds Home Medications and Allergies Home Medications Medication Instructions Recorded Confirmed Type amlodipine 10 mg tablet (Norvasc) 10 mg PO DAILY 04/06/20 09/14/21 History levothyroxine 100 mcg tablet 200 mcg PO DAILY 04/06/20 09/14/21 History methadone 10 mg tablet 145 mg PO DAILY 04/06/20 09/14/21 History Allergies Allergy/AdvReac Type Severity Reaction Status Date / Time unknown antibiotic Allergy Uncoded 04/14/20 11:07 Review of Systems Review of Systems ROS: Yes All systems reviewed with the patient and are negative except as otherwise documented Exam Vital Signs (past 8 hours): - 09/14/21 14:24 09/14/21 18:45 09/14/21 19:00 Temperature 97.8 F Pulse Rate 102 H 81 78 Respiratory Rate 18 13 Blood Pressure 169/93 H 164/91 H Pulse Oximetry 96 95 93 09/14/21 19:30 09/14/21 20:00 09/14/21 20:30 Temperature Pulse Rate 79 80 79 Respiratory Rate 15 14 17 Blood Pressure Pulse Oximetry 94 94 90 L 09/14/21 20:40 Temperature Pulse Rate 79 Respiratory Rate Blood Pressure 150/92 H Pulse Oximetry 93 Oxygen Delivery Method Room Air Narrative Exam Narrative: Gen: Alert, oriented, obese 55 y.o. male, hard to arouse HEENT: normocephalic, atraumatic, conjunctiva clear, sclera non-icteric, oral mucosa pink and moist Neck: supple, full ROM, no JVD, trachea is midline Resp: Lungs CTA, non-labored breathing CV: RRR, no murmur or rubs Abd: soft, non-tender, normoactive BTs Skin: has area of induration on upper anterior and medial right thigh, appears to have several recent needle or skin popping scars just approximately 6 distal to the knee Neuro: Alert and oriented X 4 w/no focal deficits. Speech clear and coherent. Extremities: moves all 4 extremities, is ambulatory, negative Artie?s sign Psyche: mildly agitated and hostile Objective Labs Result Diagrams: 09/14/21 17:15 09/14/21 17:15 Labs: Laboratory Results - last 24 hr 09/14/21 09/14/21 09/14/21 17:15 17:15 17:15 WBC 12.4 H RBC 4.50 Hgb 14.1 Hct 41.0 MCV 91.1 MCH 31.3 MCHC 34.4 RDW 13.6 Plt Count 250 Neut % (Auto) 68.9 Lymph % (Auto) 19.6 L [place] % (Auto) 9.0 Eos % (Auto) 1.2 L Baso % (Auto) 1.3 Neut # (Auto) 8500 H Lymph # (Auto) 2400 [place] # (Auto) 1100 H Eos # (Auto) 100 Baso # (Auto) 200 H Sodium 140 Potassium 3.3 L Chloride 105 Carbon Dioxide 32 BUN 13 Creatinine 0.85 Estimated GFR > 60 BUN/Creatinine Ratio 15.3 Glucose 88 Lactate 1.1 Calcium 9.6 Total Bilirubin 0.9 AST 21 ALT 17 Alkaline Phosphatase 90 Total Protein 7.7 Albumin 4.2 Globulin 3.5 Albumin/Globulin Ratio 1.2 Procalcitonin 0.08 SARS-CoV-2 (PCR) 09/14/21 17:50 WBC RBC Hgb Hct MCV MCH MCHC RDW Plt Count Neut % (Auto) Lymph % (Auto) [place] % (Auto) Eos % (Auto) Baso % (Auto) Neut # (Auto) Lymph # (Auto) [place] # (Auto) Eos # (Auto) Baso # (Auto) Sodium Potassium Chloride Carbon Dioxide BUN Creatinine Estimated GFR BUN/Creatinine Ratio Glucose Lactate Calcium Total Bilirubin AST ALT Alkaline Phosphatase Total Protein Albumin Globulin Albumin/Globulin Ratio Procalcitonin SARS-CoV-2 (PCR) Negative Assessment & Plan Assessment & Plan narrative: Chacho Bautista is admitted as an inpatient for cellulitis of the right medial/anterior thigh. 1. Cellulitis of the right medial/anterior thigh, acute, present on admission * He is written for IV ceftriaxone 1 gram daily, first dose administered IM due to no IV access * IV vanco per pharmacy * Off hours PICC site superintendent ordered, but may not occur until the early am * He will not be able to be discharged due to current IVDU. 2. Substance Use disorder on methadone maintenence therapy, chronic * During prior admission for a finger cellulitis, his methadone was held while he was receiving IV pain medications, it was resumed once he was off IV pain meds. Review of UTD, indicates co-administration of methadone and opioids may render opioids since methadone is an opioid agonist. * He may have tylenol scheduled, IV ketoralac and a lidocaine patch unless he opts to stop taking methadone. 3. Essential hypertension, stable * Continue amlodipine 10 mg p.o. daily 4. Hypothyroidism, stable * Continue home dose of levothyroxine 200 mcg daily VTE Prophylaxis: Wells risk score 0 Enoxaparin 40 mg subQ once daily Bilateral SCDs Patient is admitted to the inpatient service due to the severity of disease, risks of further disease progression and this stay is expected to exceed 2 midnights. FEN: IV fluids: saline lock, diet: heart healthy, labs: CBC, C/BMP, liver enzymes, Mag, PT/INR Consultants None Dispo: He is at high risk for AMA discharge Code status: Full Code as discussed with the patient who identifies his mother Janice as his surrogate and POA. [X] I have utilized all available immediate resources to obtain, update, or review of the patient's current medications COVID-19 COVID-19 status: Negative Result date/Date tested (Pos, Neg/Pending): 09/14/21 Time Spent With Patient Critical Care time: I spent a total of [] minutes of critical care time on this patient's care today; this time is exclusive of procedural time. Scores Wells' Criteria for PE Clinical signs and symptoms of DVT: No PE is #1 Dx or equally likely: No Heart rate > 100: No Immobilization at least 3 days or surg in previous 4 weeks: No History of PE or DVT: No Hemoptysis: No Malignancy w/Treatment within 6 months or palliative: No Wells' PE Score total: 0 Quality MIPS - Admit I confirm the patient?s Advance Care Plan is present, Code status is documented, Surrogate decision maker is in patient?s record [If Yes, STOP here]: Yes MIPS - DC The patient has current or prior documentation of left ventricular ejection fraction (LVEF) less than 40%, or moderate or severely depressed left ventricular systolic function.: No
--- NOTE | 2021-09-14 23:38 | PC.NURSE ---
Pt arrived with all belongings from the ED, A&O x 4. Walked from stretcher to bed, complained of pain and weakness in LLE. Reddened rash on LLE, painful to touch. Lung sounds clear, denies SOB, on RA. Heart sounds regular, denies chest pain. Skin intact, red rash on LLE, outlined for comparison purposes. Bowel tones in all 4 Q, denies N or V.
[2021-09-15] VITALS (9 sets, daily range): BP systolic 129–141; BP diastolic 79–86; PULSE 68–81; RESP 16–18; TEMP 36.2–36.8; O2SAT 91–97
--- NOTE | 2021-09-15 01:03 | DI.RAD.S_ITS ---
PROCEDURE: XR CHEST FOR PICC 1V INDICATIONS: PICC line placement TECHNIQUE: One view of the chest was acquired. COMPARISON: None. FINDINGS: Surgical changes and devices: There is a left upper extremity PICC line with the tip extending to the region of the cavoatrial junction. Lungs and pleura: The right lateral costophrenic angle is incompletely included on the current study. No definite pleural effusions or pneumothorax. There is pulmonary vascular prominence suggestive of mild edema. Mediastinum: Heart size is normal. Bones and chest wall: No suspicious bony lesions. Overlying soft tissues appear unremarkable. IMPRESSION: 1. Left PICC line extends to the region of the cavoatrial junction. 2. Pulmonary vascular prominence suggestive of mild edema. Dictated by: Lauro Bah M.D. on 09/15/2021 at 1:46 Approved by: Lauro Bah M.D. on 09/15/2021 at 1:47
[2021-09-15] MEDS: ACETAMINOPHEN 325 MG TABLET 650 MG PO (03:18)
[2021-09-15] MEDS: VANCOMYCIN 2,000 MG/400 ML PIGGYBACK 200 MG IV ×2 (03:20→15:04)
[2021-09-15] MEDS: METHADONE 10 MG TABLET 140 MG PO (05:31)
[2021-09-15] MEDS: METHADONE 5 MG TABLET PO ×2 (05:31→08:25)
[2021-09-15 05:36] LABS: Add Manual Diff / Slide Review NO; Basophils Absolute Auto 100 /uL (0-100); Basophils Percent Auto 1.1 % (0-2); Eosinophils Absolute Auto 100 /uL (0-450); Eosinophils Percent Auto 1.2 % (2-4); Hematocrit 38.7 % (41-53); Hemoglobin 13.6 g/dL (13.5-17.5); Lymphocytes Absolute Auto 1800 /uL (1100-4500); Lymphocytes Percent Auto 16.5 % (25-40); Mean Corpuscular HGB Conc 35.3 % (30-36); Mean Corpuscular Hemoglobin 32.2 PG (26-34); Mean Corpuscular Volume 91.3 fL (80-100); Monocytes Absolute Auto 1000 /uL (0-900); Neutrophils Absolute Auto 7900 /uL (1500-7000); Neutrophils Percent Auto 72.2 % (50-75); Platelet Count 235 X10^3/uL (150-400); Red Blood Cell Count 4.23 X10^6/uL (4.5-5.9); Red Cell Distribution Width 13.9 % (11.6-14.8)
[2021-09-15 05:49] LABS: Alanine Aminotransferase 15 IU/L (<50); Albumin 3.4 g/dL (3.5-5.0); Albumin Globulin Ratio 1.1 (1.0-2.8); Alkaline Phosphatase 78 U/L (38-126); Aspartate Aminotransferase 20 IU/L (17-59); BUN Creatinine Ratio 17.2 (6-22); Bilirubin Unconjugated 1.1 mg/dL (0.0-1.1); Blood Urea Nitrogen 10 mg/dL (9-20); Calcium 9.1 mg/dL (8.4-10.2); Carbon Dioxide 28 mmol/L (22-32); Chloride 107 mmol/L (98-107); Estimated Glomerular Filt Rate > 60 mL/min (>60); Globulin 3.2 g/dL (1.7-4.1); Glucose 96 mg/dL (70-100); HEMOLYSIS < 15 (0-50); Magnesium 2.2 mg/dL (1.6-2.3); Potassium 3.6 mmol/L (3.4-5.1); Sodium 140 mmol/L (137-145); Total Protein 6.6 g/dL (6.3-8.2)
[2021-09-15] MEDS: LEVOTHYROXINE 100 MCG TABLET 200 MCG PO (08:25)
[2021-09-15] MEDS: AMLODIPINE 5 MG TABLET 10 MG PO (08:25)
[2021-09-15] MEDS: ENOXAPARIN 40 MG/0.4 ML SYRINGE SUBCUT (08:25)
[2021-09-15] MEDS: DOCUSATE 100 MG CAPSULE PO (08:25)
[2021-09-15] MEDS: LIDOCAINE PATCH 1 EACH ADH..PATCH TOP (08:25)
[2021-09-15] MEDS: OXYCODONE IR 10 MG TABLET PO ×3 (11:11→20:39)
--- NOTE | 2021-09-15 13:35 | P.PN_ITS ---
Subjective Subjective Date Patient Seen: 09/15/21 Time Patient Seen: 13:35 Interval history: 55 M with obesity, substance use on methadone, and hypertension who was admitted with a right lower extremity (thigh) cellulitis. Erythema appears stable today but no significant improvement. He still has significant pain. Exam Vital Signs (past 8 hours): - 09/15/21 07:30 09/15/21 08:00 09/15/21 12:16 Temperature 97.1 F L 97.1 F L Pulse Rate 73 68 Respiratory Rate 16 18 Blood Pressure 136/85 129/86 Pulse Oximetry 92 95 94 Oxygen Delivery Method Room Air Oxygen Flow Rate 0 Narrative Exam Narrative: General:? Patient is well developed and well nourished, he is mildly ill appearing but in no acute distress, slightly lethargic HEENT:? Normocephalic, atraumatic, extraocular muscles intact, oral pharynx is clear and mucous membranes are moist. Neck: supple and symmetric, trachea is midline, no cervical adenopathy. Negative for JVD Chest:? Normal AP diameter and contour without kyphoscoliosis, no tachypnea, equal chest rise bilaterally. Lungs:? CTA b/l no wheezing rhonchi or rales. Cardio:?RRR no m/r/g. Abdomen: S NT ND. Musculoskeletal:? Muscle strength and tone are equal within normal limits, no deformity. Extremities: No edema or joint effusions. No cyanosis or clubbing. Skin:? R thigh erythema, warmth, tenderness. Area is demarcated without significant change compared to marking. Slight worsening possibly in his calf. Mild swelling of bilateral calves with tenderness. Neuro:? Alert and orientated x3,? sensation to touch intact in all extremities, no gross deficits noted of cranial nerves. Psych:? Patient has a well-kept appearance, appropriate affect, mental status attitude thought context and judgment are appropriate for age. Objective Labs Result Diagrams: 09/15/21 05:20 09/15/21 05:20 Labs: Laboratory Results - last 24 hr 09/14/21 09/14/21 09/14/21 17:15 17:15 17:15 WBC 12.4 H RBC 4.50 Hgb 14.1 Hct 41.0 MCV 91.1 MCH 31.3 MCHC 34.4 RDW 13.6 Plt Count 250 Neut % (Auto) 68.9 Lymph % (Auto) 19.6 L [place] % (Auto) 9.0 Eos % (Auto) 1.2 L Baso % (Auto) 1.3 Neut # (Auto) 8500 H Lymph # (Auto) 2400 [place] # (Auto) 1100 H Eos # (Auto) 100 Baso # (Auto) 200 H Sodium 140 Potassium 3.3 L Chloride 105 Carbon Dioxide 32 BUN 13 Creatinine 0.85 Estimated GFR > 60 BUN/Creatinine Ratio 15.3 Glucose 88 Lactate 1.1 Calcium 9.6 Magnesium Total Bilirubin 0.9 Conjugated Bilirubin Unconjugated Bilirubin AST 21 ALT 17 Alkaline Phosphatase 90 Total Protein 7.7 Albumin 4.2 Globulin 3.5 Albumin/Globulin Ratio 1.2 Procalcitonin 0.08 SARS-CoV-2 (PCR) 09/14/21 09/15/21 09/15/21 17:50 05:20 05:20 WBC 11.0 RBC 4.23 L Hgb 13.6 Hct 38.7 L MCV 91.3 MCH 32.2 MCHC 35.3 RDW 13.9 Plt Count 235 Neut % (Auto) 72.2 Lymph % (Auto) 16.5 L [place] % (Auto) 9.0 Eos % (Auto) 1.2 L Baso % (Auto) 1.1 Neut # (Auto) 7900 H Lymph # (Auto) 1800 [place] # (Auto) 1000 H Eos # (Auto) 100 Baso # (Auto) 100 Sodium 140 Potassium 3.6 Chloride 107 Carbon Dioxide 28 BUN 10 Creatinine 0.58 L Estimated GFR > 60 BUN/Creatinine Ratio 17.2 Glucose 96 Lactate Calcium 9.1 Magnesium 2.2 Total Bilirubin 1.0 Conjugated Bilirubin 0.0 Unconjugated Bilirubin 1.1 AST 20 ALT 15 Alkaline Phosphatase 78 Total Protein 6.6 Albumin 3.4 L Globulin 3.2 Albumin/Globulin Ratio 1.1 Procalcitonin SARS-CoV-2 (PCR) Negative [facility] Medical History Cellulitis of right thigh Chronic back pain Chronic kidney disease Chronic liver disease Drug abuse Essential hypertension Hemochromatosis Hypothyroid IVDU (intravenous drug user) Methadone maintenance therapy patient Myocardial infarction Family History Father Colon cancer Other Cancer Social History household members: none Smoking Status: Current every day smoker alcohol intake: never Assessment & Plan Assessment & Plan narrative: Chacho Bautista is admitted as an inpatient for cellulitis of the right medial/anterior thigh. 1. Cellulitis of the right medial/anterior thigh, acute, present on admission - continue ceftriaxone and vancomycin, no significant change thus far in appearance. - check DVT study of bilateral extremities given LE swelling and calf tenderness to rule out a DVT contributing to cellulitis. - added oxycodone for pain control as methadone was not sufficient with some relief - patient is adamant he will not take oral antibiotics, will continue to provide education and reassurance as he will likely need to discharge on oral therapy. 2. Substance Use disorder on methadone maintenence therapy, chronic - continue methadone. 3. Essential hypertension, stable - Continue amlodipine 10 mg p.o. daily 4. Hypothyroidism, stable - Continue home dose of levothyroxine 200 mcg daily Dispo: He is at high risk for AMA discharge, continue IV antibiotics for now. Timing for home likely in 2-4 days possibly depending on cellulitis improvement. Code status: Full Code as discussed with the patient who identifies? his mother Janice as his? surrogate and POA. Time Spent With Patient Critical Care time: I spent a total of [] minutes of critical care time on this patient's care today; this time is exclusive of procedural time.
--- NOTE | 2021-09-15 13:36 | DI.US.S_ITS ---
PROCEDURE: US PERIPH VENOUS LOW EXTREM RT INDICATIONS: RT THIGH SWELLING, PAIN, AND REDNESS TECHNIQUE: Real-time imaging, as well as color and pulse Doppler interrogation, were performed of the lower extremity deep veins from the inguinal ligament to the popliteal fossa. COMPARISON: None. FINDINGS: The common femoral, femoral and popliteal veins are normally compressible, and free of intraluminal thrombus. Color and pulse Doppler demonstrate normal phasic intraluminal flow. There is normal augmentation response to distal compression maneuver. Prominent right inguinal lymph nodes likely are reactive in the setting of cellulitis. IMPRESSION: Negative right lower extremity duplex venous ultrasound for DVT. Dictated by: Oniel Bergeron M.D. on 09/15/2021 at 14:48 Approved by: Oniel Bergeron M.D. on 09/15/2021 at 14:49
--- NOTE | 2021-09-15 17:24 | DI.US.S_ITS ---
PROCEDURE: US EXTREMITY NONVASC LOWER RT INDICATIONS: possible abscess R anterior/lateral thigh TECHNIQUE: Real-time scanning was performed of the right anterior thigh , with image documentation. COMPARISON: None. FINDINGS: Sonographic images within the anterior thigh demonstrate a 5.6 x 2.9 x 4.3 cm focus of heterogeneous echogenicity. Subcutaneous edema is also present. There is no increased vascularity. IMPRESSION: Heterogeneous focus of echogenicity at the area of concern. Appearance is nonspecific and most commonly appears suggestive of hematoma or abscess and clinical correlation is recommended. Dictated by: Lety Ayoub M.D. on 09/15/2021 at 17:06 Approved by: Lety Ayoub M.D. on 09/15/2021 at 17:08
--- NOTE | 2021-09-15 17:25 | PC.NURSE ---
Day shift - I informed Dr. Da Silva that redness in right leg is getting worse and extending past boundaries that were previously drawn and there is a part of upper thigh that is bulging. Dr. da silva has ordered a second leg ultrasound.
[2021-09-15] MEDS: MEROPENEM 500 MG in SODIUM CHLORIDE 0.9% 100 ML 200 ML IV (17:44)
[2021-09-15] MEDS: CLINDAMYCIN 600 MG/50 ML PIGGYBACK 50 MG IV (17:44)
--- NOTE | 2021-09-15 21:47 | PC.NURSE ---
Pt refusing to give urine sample. They test me at the clinic, if they really want results they can do it there. Informed pt that the methadone clinic is separate from the hospital and a urine analysis can provide valuable information to the provider. Pt verbalized understanding and maintained refusal.
[2021-09-16] VITALS (12 sets, daily range): BP systolic 124–147; BP diastolic 82–92; PULSE 70–81; RESP 14–16; TEMP 36.1–36.9; O2SAT 91–99
[2021-09-16] MEDS: OXYCODONE IR 10 MG TABLET PO ×6 (00:57→22:16)
[2021-09-16] MEDS: CLINDAMYCIN 600 MG/50 ML PIGGYBACK 50 MG IV ×3 (01:00→17:41)
[2021-09-16] MEDS: MEROPENEM 0.5 GM in SODIUM CHLORIDE 0.9% 100 ML 200 ML IV (02:39)
[2021-09-16] MEDS: VANCOMYCIN 2,000 MG/400 ML PIGGYBACK 200 MG IV ×2 (03:51→15:36)
[2021-09-16] MEDS: METHADONE 10 MG TABLET 140 MG PO (06:05)
[2021-09-16] MEDS: LEVOTHYROXINE 100 MCG TABLET 200 MCG PO (06:05)
[2021-09-16 07:10] LABS: Add Manual Diff / Slide Review NO; Alanine Aminotransferase 15 IU/L (<50); Albumin 3.6 g/dL (3.5-5.0); Albumin Globulin Ratio 1.1 (1.0-2.8); Alkaline Phosphatase 87 U/L (38-126); Aspartate Aminotransferase 21 IU/L (17-59); Basophils Absolute Auto 100 /uL (0-100); Basophils Percent Auto 0.7 % (0-2); Bilirubin Total 0.8 mg/dL (0.2-1.3); Bilirubin Unconjugated 0.9 mg/dL (0.0-1.1); Eosinophils Absolute Auto 200 /uL (0-450); Eosinophils Percent Auto 1.5 % (2-4); Globulin 3.4 g/dL (1.7-4.1); HEMOLYSIS < 15 (0-50); Hematocrit 40.6 % (41-53); Hemoglobin 14.2 g/dL (13.5-17.5); Lymphocytes Absolute Auto 1800 /uL (1100-4500); Lymphocytes Percent Auto 17.2 % (25-40); Magnesium 2.2 mg/dL (1.6-2.3); Mean Corpuscular Hemoglobin 32.1 PG (26-34); Mean Corpuscular Volume 91.9 fL (80-100); Monocytes Absolute Auto 1100 /uL (0-900); Monocytes Percent Auto 10.9 % (3-14); Neutrophils Absolute Auto 7300 /uL (1500-7000); Neutrophils Percent Auto 69.7 % (50-75); Platelet Count 242 X10^3/uL (150-400); Red Blood Cell Count 4.42 X10^6/uL (4.5-5.9); Red Cell Distribution Width 13.9 % (11.6-14.8); White Blood Cell Count 10.5 X10^3/uL (4.5-11.0)
[2021-09-16] MEDS: METHADONE 5 MG TABLET PO (08:54)
[2021-09-16] MEDS: LIDOCAINE PATCH 1 EACH ADH..PATCH TOP (08:54)
[2021-09-16] MEDS: DOCUSATE 100 MG CAPSULE PO ×2 (08:54→20:13)
[2021-09-16] MEDS: AMLODIPINE 5 MG TABLET 10 MG PO (08:54)
[2021-09-16] MEDS: MEROPENEM 500 MG in SODIUM CHLORIDE 0.9% 100 ML 200 ML IV ×2 (10:06→17:43)
[2021-09-16] MEDS: VANCOMYCIN TROUGH 1 REQUEST MISC (14:50)
[2021-09-16 15:13] LABS: Vancomycin Trough 11.1 ug/mL (10-20)
[2021-09-16] MEDS: NICOTINE 21 MG PATCH TOP (17:40)
--- NOTE | 2021-09-16 18:21 | P.PN_ITS ---
Subjective Subjective Date Patient Seen: 09/16/21 Interval history: 55 M with obesity, substance use on methadone, and hypertension who was admitted with a right lower extremity (thigh) cellulitis.? Patient notes erythema slightly receding. Dr. Cooper saw patient for possible abscess but at this time abscess not likely and I and D not recommended. Exam Vital Signs (past 8 hours): - 09/16/21 12:18 09/16/21 14:16 09/16/21 15:00 Temperature 98.4 F Pulse Rate 80 Respiratory Rate 15 Blood Pressure 147/92 H Pulse Oximetry 92 94 92 09/16/21 17:00 Temperature 97.7 F Pulse Rate 73 Respiratory Rate 16 Blood Pressure 143/84 H Pulse Oximetry 92 Oxygen Delivery Method Room Air Oxygen Flow Rate 0 Narrative Exam Narrative: General: Alert and cooperative male in no acute distress Extremities: Right thigh erythema, warmth and tenderness with upper area of more significant soft tissue swelling but without fluctuance, there is faint erythema going down to the calf as well. Objective Labs Result Diagrams: 09/16/21 06:19 09/15/21 05:20 Labs: Laboratory Results - last 24 hr 09/16/21 09/16/21 09/16/21 06:19 06:19 14:40 WBC 10.5 RBC 4.42 L Hgb 14.2 Hct 40.6 L MCV 91.9 MCH 32.1 MCHC 35.0 RDW 13.9 Plt Count 242 Neut % (Auto) 69.7 Lymph % (Auto) 17.2 L [place] % (Auto) 10.9 Eos % (Auto) 1.5 L Baso % (Auto) 0.7 Neut # (Auto) 7300 H Lymph # (Auto) 1800 [place] # (Auto) 1100 H Eos # (Auto) 200 Baso # (Auto) 100 Magnesium 2.2 Total Bilirubin 0.8 Conjugated Bilirubin 0.0 Unconjugated Bilirubin 0.9 AST 21 ALT 15 Alkaline Phosphatase 87 Total Protein 7.0 Albumin 3.6 Globulin 3.4 Albumin/Globulin Ratio 1.1 Vancomycin Trough 11.1 PFSH Medical History Cellulitis of right thigh Chronic back pain Chronic kidney disease Chronic liver disease Drug abuse Essential hypertension Hemochromatosis Hypothyroid IVDU (intravenous drug user) Methadone maintenance therapy patient Myocardial infarction Family History Father Colon cancer Other Cancer Social History household members: none Smoking Status: Current every day smoker alcohol intake: never Assessment & Plan Assessment & Plan narrative: Chacho Bautista is admitted as an inpatient for cellulitis of the right medial/anterior thigh. 1. Cellulitis of the right medial/anterior thigh, acute, present on admission -marginal improvement on IV antibiotics -continue vancomycin, clindamycin and meropenem although vancomycin alone may be sufficient, trough levels have been on low side -appreciate surgery consult 2. Substance Use disorder on methadone maintenence therapy, chronic ?- continue methadone. 3. Essential hypertension, stable ?- Continue amlodipine 10 mg p.o. daily 4. Hypothyroidism, stable ?- Continue home dose of levothyroxine 200 mcg daily Time Spent With Patient Critical Care time: I spent a total of [] minutes of critical care time on this patient's care today; this time is exclusive of procedural time.
[2021-09-17] VITALS: BP 138/88; PULSE 75; RESP 16; TEMP 36.1; O2SAT 92
[2021-09-17] MEDS: OXYCODONE IR 10 MG TABLET PO ×2 (02:01→06:50)
[2021-09-17] MEDS: MEROPENEM 500 MG in SODIUM CHLORIDE 0.9% 100 ML 200 ML IV (02:02)
[2021-09-17] MEDS: CLINDAMYCIN 600 MG/50 ML PIGGYBACK 50 MG IV (02:47)
[2021-09-17 03:00] VITALS: O2SAT 97
[2021-09-17] MEDS: VANCOMYCIN 2,000 MG/400 ML PIGGYBACK 200 MG IV (03:59)
[2021-09-17 05:30] VITALS: BP 129/62; PULSE 81; RESP 16; O2SAT 92
[2021-09-17] MEDS: METHADONE 10 MG TABLET 140 MG PO (05:49)
[2021-09-17] MEDS: LEVOTHYROXINE 100 MCG TABLET 200 MCG PO (05:49)
[2021-09-17 06:20] LABS: Alanine Aminotransferase 17 IU/L (<50); Albumin 3.6 g/dL (3.5-5.0); Alkaline Phosphatase 78 U/L (38-126); Aspartate Aminotransferase 26 IU/L (17-59); Bilirubin Total 0.8 mg/dL (0.2-1.3); Bilirubin Unconjugated 0.5 mg/dL (0.0-1.1); Globulin 3.5 g/dL (1.7-4.1); Magnesium 2.3 mg/dL (1.6-2.3); Total Protein 7.1 g/dL (6.3-8.2)
[2021-09-17 06:21] LABS: HEMOLYSIS 67 (0-50)
[2021-09-17 06:25] LABS: Add Manual Diff / Slide Review NO; Basophils Absolute Auto 100 /uL (0-100); Basophils Percent Auto 1.1 % (0-2); Eosinophils Absolute Auto 200 /uL (0-450); Eosinophils Percent Auto 2.3 % (2-4); Hematocrit 40.5 % (41-53); Lymphocytes Absolute Auto 1700 /uL (1100-4500); Lymphocytes Percent Auto 19.3 % (25-40); Mean Corpuscular HGB Conc 34.5 % (30-36); Mean Corpuscular Hemoglobin 31.7 PG (26-34); Mean Corpuscular Volume 91.8 fL (80-100); Monocytes Absolute Auto 900 /uL (0-900); Monocytes Percent Auto 10.1 % (3-14); Neutrophils Absolute Auto 5800 /uL (1500-7000); Neutrophils Percent Auto 67.2 % (50-75); Platelet Count 249 X10^3/uL (150-400); Red Blood Cell Count 4.41 X10^6/uL (4.5-5.9); White Blood Cell Count 8.6 X10^3/uL (4.5-11.0)
[2021-09-17 07:00] VITALS: BP 152/92; PULSE 87; RESP 20; TEMP 36.2; O2SAT 97
--- NOTE | 2021-09-17 07:25 | PC.NURSE ---
At approx 0720 this RN was informed by catina RICHARDSON that the patient was irate and demanding to talk to a nurse. This RN went to talk to the patient, as a good rapport had been established. Pt was agitated and demanded someone contact the methadone clinic to coordinate care for when he was discharged. This RN attempted to inform the patient that it wasn't known when he would discharge, the timing of that would be a decision made by the doctor, and both the doctor and care management would assist in prescriptions and coordinating with any outpatient care. Pt interrupted this RN throughout explanation and threatened to leave. Pt demanded to leave, this RN left to get AMA forms and notify the MD. While on the phone, pt was observed leaving the room with midline in place, dressed with backpack and jacket. The MINE ENVIRONMENTAL ENGINEER managed to convince the patient to stay and sign paperwork, during which the MD arrived and discussed plan of care with the patient. Patient agreed to stay for now. Catina PAPPAS was present during the situation, and is aware.
[2021-09-17 07:38] VITALS: O2SAT 93
--- NOTE | 2021-09-17 07:53 | PC.NURSE ---
Pt present calmer @ this time. Allowed for RN to take vital signs
--- NOTE | 2021-09-17 09:05 | CM.DPNOTE ---
Addendum entered by Marifer Rosa CONTROL DIRECTOR 09/17/21 13:54: ADD: Correction- Patient not discharged this morning, patient left AMA JW Original Note: DC Note According to Dr Parra, patient has threatened to leave AMA this morning in order to make it to [place] by 1100 to seed cone picker his Sunday dose of Methadone. In addition, patient is stating he needs to leave in order to help his mom out today. Dr Parra requests that this CONTROL DIRECTOR investigate patient's option for outpatient IV Dapto, Q24, for an additional 10 days. Patient has a midline according to RN. Dr Parra requests that [facility] follow this IV abx order because they can provide primary care. Chart indicates GRANT RamirezP at the [facility], is patient's primary care provider. This CONTROL DIRECTOR shares concern re: this DCP. Last documented relapse (IV heroin) was in 2019, however, Patient's behavior throughout this visit, refusing urine sample, threatening to leave AMA, is suspicious for active drug use. In addition, no tox was taken upon patient's arrival. Dr Parra wants to proceed. Patient refusing po abx d/t hx of getting violently ill every time he has been prescribed po abx. This CONTROL DIRECTOR cannot coordinate outpatient infusion, through [facility], today because patient has [facility] which would require a pre-auth before getting him on the infusion schedule. There is no way of establishing patient at [facility] for outpatient infusion either. Discussed plan w/patient. He is agreeable to discharging w/active line and potentially receiving teaching/supplies from [facility], patient agrees to care for active line (ie keep dry and clean), confirms he has not used IV drugs for years and that he has a clean apt to return to in [place] w/family to assist Lastly, reviewed plan with Richard at [facility]. There is not an RN available until Sunday to assist patient, in addition, [facility] would need to run patient's insurance coverage Sunday before starting care. Relayed above to MIAN Valente and Dr Parra; no outpatient infusion could be secured by patient's stated deadline; discharging with active midline without plan for ongoing IV abx would be inappropriate. Plan: DC home via patient's pov with close outpatient f/u recommended; Patient instructed to return to the ER if sx of infection are persistent and/or worsen. JULIA Devine
[2021-09-17] MEDS: METHADONE 5 MG TABLET PO (09:10)
[2021-09-17] MEDS: DOCUSATE 100 MG CAPSULE PO (09:10)
[2021-09-17] MEDS: AMLODIPINE 5 MG TABLET 10 MG PO (09:10)
[2021-09-17] MEDS: ENOXAPARIN 40 MG/0.4 ML SYRINGE SUBCUT ×2 (09:10→09:29)
--- NOTE | 2021-09-17 09:30 | PC.NURSE ---
Pt received dicharge orders. Home instructions given w/understanding. FLOR[place] Midline D/C intact. Pt to go to [facility] clinic upon discharge. Pt escorted via W/C by staff to private vehicle. D/C in stable condition.
--- NOTE | 2021-09-17 17:37 | P.DS_ITS ---
History of Present Illness History of Present Illness Chief complaint: Rt thigh pain, swelling Narrative: Chacho Bautista is a 55 y.o. male with a history of IVDU, apparently last use 2-3 weeks ago, hypertension and hypothyroidism presents today with a 4 day history of increased pain, swelling, and erythema of the right upper anterior thigh. States it became intolerable today. Per the ED provider, the patient did not have IV access after returning from [place] and they were unable to get IV access, so he was administered IM penicillin and ceftriaxone in the ED. He denies fever, sweats or chills, difficulty breathing, difficulty swallowing, but states taking oral antibiotics gives him clostridium difficile, has chronic back pain with parestesias to his feet and is on methadone maintenance therapy, now on 145 mg/day, states used to take 200 mg/day. CT of the right lower extremity reported Reticulated and confluent soft tissue density along with skin thickening, predominantly in the anterior soft tissues, compatible with cellulitis/edema.. He is afebrile, blood pressure 147/115, heart rate 81, respiratory rate 18, oxygen saturation 97% on room air he weighs 109 kg with a BMI of 37.4.? His WBC is mildly elevated at 12.4, mild left shift of 8500, potassium was 3.3? for which he was repleted with oral potassium in the emergency department, procalcitonin was 0.08, and COVID-19 PCR is negative. Discharge Providers Provider Date of admission: 09/14/21 18:46 Discharge Date: 09/17/21 Primary care physician: CHANDAN Ramirez Consults: 09/14/21 14:30 [place] [facility] [place] Stat Comment: worried about housing 09/14/21 20:29 Consult After Hours PICC Line RN Urgent Comment: 09/14/21 21:03 Consult [place] [facility] [place] Routine Comment: 09/15/21 00:24 Consult After Hours PICC Line RN Routine Comment: 09/15/21 18:35 Consult to General Surgery Routine Comment: Consulting Provider: Alejandro Currie Reason for consultation: R thigh abscess Discharge provider: Fransisco Parra MD Summary Hospital Course Discharge Diagnosis: 1. Cellulitis of the right thigh 2. Methadone dependency 3. Hypertension Hospital Course: Patient was admitted and started on IV antibiotics for treatment of cellulitis. There was some question about developing abscess on the upper thigh and surgery consulted but did not think clinically abscess was likely. On day 3 of hospital admission patient abruptly decided to leave Against Medical Advice In order to accommodate patient, we were hoping to set up home infusion therapy with da ptomycin but due to it being the weekend we could not get insurance authorization to make this happen. Patient also declined oral antibiotics since he states that he gets severe diarrhea with multiple different antibiotics over the years even after 1 dose. He understands cellulitis is severe in nature and unlikely to resolve on its own and may worsen and cause more serious condition such as septicemia. See patient instructions below. Time Spent with Patient Time spent: Greater than 30 minutes Exam Vital Signs (past 8 hours): Oxygen Delivery Method Room Air Oxygen Flow Rate 0 Narrative Exam Narrative: General: Alert male NAD Extremities: Appearance of right thigh cellulitis unchanged from prior day Objective Labs Result Diagrams: 09/17/21 06:00 09/15/21 05:20 Labs: Laboratory Results - last 24 hr 09/17/21 09/17/21 06:00 06:00 WBC 8.6 RBC 4.41 L Hgb 14.0 Hct 40.5 L MCV 91.8 MCH 31.7 MCHC 34.5 RDW 14.0 Plt Count 249 Neut % (Auto) 67.2 Lymph % (Auto) 19.3 L [place] % (Auto) 10.1 Eos % (Auto) 2.3 Baso % (Auto) 1.1 Neut # (Auto) 5800 Lymph # (Auto) 1700 [place] # (Auto) 900 Eos # (Auto) 200 Baso # (Auto) 100 Magnesium 2.3 Total Bilirubin 0.8 Conjugated Bilirubin 0.0 Unconjugated Bilirubin 0.5 AST 26 ALT 17 Alkaline Phosphatase 78 Total Protein 7.1 Albumin 3.6 Globulin 3.5 Albumin/Globulin Ratio 1.0 [facility] Medical History Cellulitis of right thigh Chronic back pain Chronic kidney disease Chronic liver disease Drug abuse Essential hypertension Hemochromatosis Hypothyroid IVDU (intravenous drug user) Methadone maintenance therapy patient Myocardial infarction Family History Father Colon cancer Other Cancer Social History household members: none Smoking Status: Current every day smoker alcohol intake: never Discharge Plan Discharge Plan Patient Disposition: Home Provider Discharge Comment: You are leaving the hospital against medical advice. Return to ER immediately if you develop fever, shaking chills or worsening severe pain in the leg. Follow up at [facility] clinic. They may be able to arrange outpatient IV antibiotic through home infusion or coming in to the infusion clinic. We were unable to do this for you due to constraints of getting insurance authorization over the weekend. Recommended infusion is Daptomycin 500 mg IV every 24 hours. Discharge orders & Medications Prescriptions: Continued amlodipine [Norvasc] 10 mg tablet 10 mg PO DAILY 0RF Label Comments: take 1 tablet by mouth once daily for high blood pressure Rx Instructions: takes at 530 levothyroxine 100 mcg tablet 200 mcg PO DAILY 0RF Label Comments: takes at 0530 methadone 10 mg tablet 145 mg PO DAILY 0RF Label Comments: takes 0530 qday Follow up/Referrals: Miscellaneous,DoctorMD [Non-Staff] - Sheila Dunbar ARNP [Primary Care Provider] - Diet/Activity/Treatments Diet: Regular Discharge Data Primary Care Provider: Sheila Dunbar
== END 2021-09-17 09:20 | disposition left against medical advice (07) | DRG 603 ==
LOC: ED 18:34 → AC 09-15 07:44
PROVIDERS: Nurse Practitioner Family; Admitting Provider Internal Medicine; Emergency Provider Nurse Practitioner Critical Care Medicine; PCP Nurse Practitioner Family; Referring Provider Nurse Practitioner Critical Care Medicine; Visit Provider Internal Medicine
DX: L03.115 Cellulitis of right lower limb (principal); F11.20 Opioid dependence, uncomplicated; I10 Essential (primary) hypertension; E03.9 Hypothyroidism, unspecified; F17.210 Nicotine dependence, cigarettes, uncomplicated; Z53.29 Procedure and treatment not carried out because of patient's decision for other reasons; Z20.822 Contact with and (suspected) exposure to COVID-19
CPT/HCPCS: 36415; 36592; 73700; 76882; 80048; 80053; 80076; 80202; 83605; 83735; 84145; 85025; 87040; 87635; 93971; 94760; 96372; 99284; C9803; J0561; J0696; J1650; J2185

== ENCOUNTER 2021-09-20 07:22 | Observation (INO) | payer OTHER, MEDICAID, SELFPAY ==
[2021-09-14 19:43] VITALS: BMI 37.4
[2021-09-20] VITALS (21 sets, daily range): BP systolic 131–178; BP diastolic 76–114; PULSE 68–96; RESP 10–18; TEMP 36.1–36.8; O2SAT 15–100; BMI 34.2
--- NOTE | 2021-09-20 | DI.RAD.S_ITS ---
PROCEDURE: XR CHEST 1V INDICATIONS: SUBCLAVIAN IV LIVE TECHNIQUE: One view of the chest was acquired. COMPARISON: [facility], CR, XR CHEST FOR PICC 1V, 09/15/2021, 1:09. FINDINGS: Surgical changes and devices: Left arm central line appears well positioned. Lungs and pleura: Lungs are clear. No pleural effusions or pneumothorax. Mediastinum: Mediastinal contours appear normal. Heart size is normal. Bones and chest wall: No suspicious bony lesions. Overlying soft tissues appear unremarkable. IMPRESSION: No acute cardiopulmonary abnormality Dictated by: Holger Jo M.D. on 09/20/2021 at 12:49 Approved by: Holger Jo M.D. on 09/20/2021 at 12:50
--- NOTE | 2021-09-20 08:13 | ED.EXTPRO ---
HPI - Extremity Problem General Chief complaint: Extremity Problem,Nontraumatic Stated complaint: rt leg infection, high blood pressure Time Seen by Provider: 09/20/21 08:06 Source: patient Mode of arrival: Ambulatory History of Present Illness HPI Narrative: Patient is a 55-year-old male history of substance use on methadone presenting today with right thigh abscess all. He was is admitted to the hospital September 14 through September 17 for cellulitis. Ultrasound did actually show fluid collections surgery was consulted however no I and D was recommended at that time. Patient was on antibiotics that received IV vancomycin clindamycin and meropenem. Patient left against medical advice the . They arranged to have home IV infusion of daptomycin but due to it being the weekend cannot get insurance authorization. He States he was doing well until last night when he said his thighs suddenly got raised all red and hard. No fevers or chills. Related Data Home Medications Medication Instructions Recorded Confirmed amlodipine 10 mg tablet (Norvasc) 10 mg PO DAILY 04/06/20 09/20/21 levothyroxine 100 mcg tablet 200 mcg PO DAILY 04/06/20 09/20/21 methadone 10 mg tablet 145 mg PO DAILY 04/06/20 09/20/21 Previous Rx's Medication Instructions Recorded hydromorphone 4 mg tablet 4 mg PO Q4HR PRN #10 tab 09/20/21 naproxen 250 mg tablet 500 mg PO BIDWM #30 tab 09/20/21 Allergies Allergy/AdvReac Type Severity Reaction Status Date / Time unknown antibiotic Allergy Oral Uncoded 09/20/21 10:08 Abx-trips to the ER Review of Systems Review of Systems Narrative: GENERAL: Denies chills, fatigue, malaise, fever, sweats, travel HEENT: Denies sinus pain, ear pain, sore throat, difficulty swallowing, neck pain RESPIRATORY: Denies dyspnea, cough, wheezing, hemoptysis, sputum. CARDIOVASCULAR: Denies chest pain, palpitations, orthopnea, edema GASTROINTESTINAL: Denies nausea, vomiting, abdominal pain, diarrhea, constipation, melena. : Denies dysuria, frequency, incontinence, hematuria, urinary retention, flank pain. MUSCULOSKELETAL: Denies weakness, joint pain, or bony pain SKIN: See HPI NEUROLOGIC: Denies weakness, dizziness, headache, numbness, change in speech, confusion PSYCHIATRIC: No concerning psychosocial issues. 12 point review of systems is negative except for those stated above and HPI Patient History Medical History Cellulitis of right thigh Chronic back pain Chronic kidney disease Chronic liver disease Drug abuse Essential hypertension Hemochromatosis Hypothyroid IVDU (intravenous drug user) Methadone maintenance therapy patient Myocardial infarction Family History Father Colon cancer Other Cancer Social History household members: none Smoking Status: Current every day smoker alcohol intake: never Smoking Status: Current every day smoker tobacco type: cigarettes alcohol intake frequency: other Substance Use Type: marijuana Exam Initial Vital Signs Initial Vital Signs: Vital Signs Temperature 98.2 F 09/20/21 07:47 Pulse Rate 96 H 09/20/21 07:47 Respiratory Rate 18 09/20/21 07:47 Blood Pressure 176/108 H 09/20/21 07:47 Pulse Oximetry 100 09/20/21 07:47 GENERAL: Alert 55-year-old male in no acute distress. HEENT: Head atraumatic,EOMI, pupils reactive, face symmetric, [moist] mucous membranes CARDIOVASCULAR: Regular rate and rhythm without murmurs, rubs or gallops. RESPIRATORY: Breath sounds equal bilaterally, no wheezes rales or rhonchi. ABDOMEN: Soft, nontender. Normoactive bowel sounds all 4 quadrants. No guarding or rebound. EXTREMITIES: Normal range of motion, no clubbing or edema. Neurovascularly intact NEUROLOGICAL: Alert and oriented x4.Normal gait and speech. SKIN: Right anterior thigh abscess 10 cm x 8 cm fluctuant erythematous Course Orders Ordered: ED Orders 09/20/21 08:10 Complete Blood Count AUTO DIFF Stat Comprehensive Metabolic Panel Stat Lactate (Lactic Acid) Stat Lipase Stat Procalcitonin Stat Amlodipine Besylate (Amlodipine 5 Mg Tablet) 10 mg PO DAILY [facility] Last Admin: 09/20/21 14:50 Dose: 10 mg Documented by: FREDDY Hydromorphone HCl (Hydromorphone 4 Mg Tablet) 4 mg PO Q4HR PRN PRN Reason: Pain, Severe (7-10) Sodium Chloride (Normal Saline 0.9%) 1,000 mls @ 125 mls/hr IV CONT [facility] Last Admin: 09/20/21 14:19 Dose: 125 mls/hr Documented by: Infusion: 09/20/21 13:48 Dose: 0 mls/hr Documented by: Infusion: 09/20/21 09:35 Dose: 125 mls/hr Documented by: Admin: 09/20/21 09:17 Dose: 125 mls/hr Documented by: JADE Lactated Ringer's (Lactated Ringers) 1,000 mls @ 42 mls/hr IV NOW ONE Stop: 09/21/21 10:43 Last Admin: 09/20/21 10:56 Dose: 42 mls/hr Documented by: PAM Levothyroxine Sodium (Levothyroxine 100 Mcg Tablet) 200 mcg PO DAILY@0600 PRIMO Naproxen (Naproxen 250 Mg Tablet) 500 mg PO BIDWM PRIMO Nicotine (Nicotine 21 Mg Patch) 21 mg TOP DAILY PRIMO Last Admin: 09/20/21 16:18 Dose: Not Given Documented by: CLIF Discontinued Medications Fentanyl (Fentanyl 100 Mcg/2 Ml Inj) 0 mcg IV Q5M PRN PRN Reason: Pain, Moderate (4-6) Last Admin: 09/20/21 12:49 Dose: 50 mcg Documented by: Admin: 09/20/21 12:40 Dose: 50 mcg Documented by: HUMERA Gabapentin (Gabapentin 300 Mg Capsule) 300 mg PO NOW ONE Stop: 09/20/21 14:14 Last Admin: 09/20/21 14:50 Dose: 300 mg Documented by: FREDDY Hydromorphone HCl (Hydromorphone 0.5 Mg Inj) 1 mg IV NOW ONE Stop: 09/20/21 09:42 Last Admin: 09/20/21 09:46 Dose: 1 mg Documented by: NICOLAS Hydromorphone HCl (Hydromorphone 2 Mg Inj) 0 mg IV Q5M PRN PRN Reason: Pain, Moderate (4-6) Last Admin: 09/20/21 12:53 Dose: 0.5 mg Documented by: Admin: 09/20/21 12:40 Dose: 0.5 mg Documented by: Admin: 09/20/21 12:32 Dose: 0.5 mg Documented by: Admin: 09/20/21 12:25 Dose: 0.5 mg Documented by: HUMERA Hydromorphone HCl (Hydromorphone 2 Mg Tablet) 2 mg PO NOW ONE Stop: 09/20/21 13:09 Last Admin: 09/20/21 13:24 Dose: 2 mg Documented by: ASHUTOSH Hydromorphone HCl (Hydromorphone 2 Mg Tablet) 2 mg PO NOW ONE Stop: 09/20/21 13:03 Hydroxyzine HCl (Hydroxyzine 50 Mg/Ml Inj) 25 mg IM NOW PRN PRN Reason: Pain, Mild (1-3) Sodium Chloride (Normal Saline 0.9%) 1,000 mls @ 1,000 mls/hr IV BOLUS ONE Stop: 09/20/21 08:52 Last Infusion: 09/20/21 09:17 Dose: 0 mls/hr Documented by: Admin: 09/20/21 08:15 Dose: 1,000 mls/hr Documented by: JADE Lactated Ringer's (Lactated Ringers) 1,000 mls @ 120 mls/hr IV CONT PRIMO Piperacillin Sod/Tazobactam (Sod 4.5 gm/ Sodium Chloride) 100 mls @ 200 mls/hr IV NOW ONE Stop: 09/20/21 14:14 Last Admin: 09/20/21 14:49 Dose: 200 mls/hr Documented by: FREDDY Lorazepam (Lorazepam 2 Mg/Ml Inj) 0.25 mg IV NOW PRN PRN Reason: Anxiety Last Admin: 09/20/21 12:55 Dose: 0.25 mg Documented by: Admin: 09/20/21 12:50 Dose: 0.25 mg Documented by: HUMERA Ondansetron HCl (Ondansetron 4 Mg/2 Ml Inj) 4 mg IV NOW PRN PRN Reason: Nausea And Vomiting Ondansetron HCl (Ondansetron 4 Mg/2 Ml Inj) 4 mg IV NOW ONE Stop: 09/20/21 12:40 Last Admin: 09/20/21 12:40 Dose: 4 mg Documented by: HUMERA Vital Signs Vital signs: Vital Signs - 8 hr 09/20/21 07:47 Temperature 98.2 F Pulse Rate 96 H Respiratory Rate 18 Blood Pressure 176/108 H Pulse Oximetry 100 MDM - Extremity (Nontraumatic) Lab Data Result diagrams: 09/20/21 08:10 09/20/21 08:10 Labs: Lab Results 09/20/21 09/20/21 09/20/21 Range/Units 08:10 08:10 08:10 WBC 10.2 (4.5-11.0) X10^3/uL RBC 4.57 (4.5-5.9) X10^6/uL Hgb 14.5 (13.5-17.5) g/dL Hct 42.2 (41-53) % MCV 92.3 (80-100) fL MCH 31.6 (26-34) PG MCHC 34.3 (30-36) % RDW 13.7 (11.6-14.8) % Plt Count 333 (150-400) X10^3/uL Neut % (Auto) 70.2 (50-75) % Lymph % (Auto) 21.0 L (25-40) % [place] % (Auto) 6.1 (3-14) % Eos % (Auto) 1.7 L (2-4) % Baso % (Auto) 1.0 (0-2) % Neut # (Auto) 7100 H (3795-1905) /uL Lymph # (Auto) 2100 (6827-2349) /uL [place] # (Auto) 600 (0-900) /uL Eos # (Auto) 200 (0-450) /uL Baso # (Auto) 100 (0-100) /uL Sodium 141 (137-145) mmol/L Potassium 3.9 (3.4-5.1) mmol/L Chloride 104 (98-107) mmol/L Carbon Dioxide 32 (22-32) mmol/L BUN 12 (9-20) mg/dL Creatinine 0.74 (0.66-1.25) mg/dL Estimated GFR > 60 (>60) mL/min BUN/Creatinine Ratio 16.2 (6-22) Glucose 113 H (70-100) mg/dL Lactate 1.2 (0.7-2.1) mmol/L Calcium 10.1 (8.4-10.2) mg/dL Total Bilirubin 0.3 (0.2-1.3) mg/dL AST 22 (17-59) IU/L ALT 21 (<50) IU/L Alkaline Phosphatase 105 (38-126) U/L Total Protein 7.9 (6.3-8.2) g/dL Albumin 4.1 (3.5-5.0) g/dL Globulin 3.8 (1.7-4.1) g/dL Albumin/Globulin Ratio 1.1 (1.0-2.8) Lipase 21 L (23-300) U/L Procalcitonin 0.06 (<0.5) ng/mL MDM Narrative Medical decision making narrative: Has abscess of right thigh. Blood work overall overall reassuring no sign of acute sepsis. Dr. Cabral surgery has been consulted. She accepts patient to observation and will take patient to the OR later. Request keeping patient NPO. Patient is a hard IV start DI nurse was able to place midline Discharge Plan Departure Patient Disposition: Admitted as Observation Clinical Impression: Abscess of left leg Admit Date/Time: 09/20/21 08:45 Admit Provider: Miguelina Cabral
[2021-09-20] MEDS: SODIUM CHLORIDE 0.9% 1,000 ML 1000 ML IV (08:15)
[2021-09-20 08:26] LABS: Add Manual Diff / Slide Review NO; Basophils Absolute Auto 100 /uL (0-100); Eosinophils Absolute Auto 200 /uL (0-450); Eosinophils Percent Auto 1.7 % (2-4); Hematocrit 42.2 % (41-53); Hemoglobin 14.5 g/dL (13.5-17.5); Lymphocytes Absolute Auto 2100 /uL (1100-4500); Mean Corpuscular HGB Conc 34.3 % (30-36); Mean Corpuscular Hemoglobin 31.6 PG (26-34); Mean Corpuscular Volume 92.3 fL (80-100); Monocytes Absolute Auto 600 /uL (0-900); Monocytes Percent Auto 6.1 % (3-14); Neutrophils Absolute Auto 7100 /uL (1500-7000); Neutrophils Percent Auto 70.2 % (50-75); Platelet Count 333 X10^3/uL (150-400); Red Blood Cell Count 4.57 X10^6/uL (4.5-5.9); Red Cell Distribution Width 13.7 % (11.6-14.8); White Blood Cell Count 10.2 X10^3/uL (4.5-11.0)
[2021-09-20 08:31] LABS: Lactate (Lactic Acid) 1.2 mmol/L (0.7-2.1)
[2021-09-20 08:32] LABS: Alanine Aminotransferase 21 IU/L (<50); Albumin 4.1 g/dL (3.5-5.0); Albumin Globulin Ratio 1.1 (1.0-2.8); Alkaline Phosphatase 105 U/L (38-126); Aspartate Aminotransferase 22 IU/L (17-59); BUN Creatinine Ratio 16.2 (6-22); Bilirubin Total 0.3 mg/dL (0.2-1.3); Blood Urea Nitrogen 12 mg/dL (9-20); Calcium 10.1 mg/dL (8.4-10.2); Carbon Dioxide 32 mmol/L (22-32); Chloride 104 mmol/L (98-107); Estimated Glomerular Filt Rate > 60 mL/min (>60); Globulin 3.8 g/dL (1.7-4.1); Glucose 113 mg/dL (70-100); HEMOLYSIS < 15 (0-50); Lipase 21 U/L (23-300); Potassium 3.9 mmol/L (3.4-5.1); Sodium 141 mmol/L (137-145); Total Protein 7.9 g/dL (6.3-8.2)
[2021-09-20 08:48] LABS: Procalcitonin 0.06 ng/mL (<0.5)
[2021-09-20 09:17] LABS: COVID19 -Nasal RAPID Negative (Negative)
[2021-09-20] MEDS: SODIUM CHLORIDE 0.9% 1,000 ML 125 ML IV ×2 (09:17→14:19)
[2021-09-20] MEDS: HYDROMORPHONE 0.5 MG INJ 1 MG IV (09:46)
--- NOTE | 2021-09-20 10:21 | SUR.HOLD ---
Received from the ER with IV infusing; placed on IV pump at same rate as in the OR.
--- NOTE | 2021-09-20 10:27 | P.HP_ITS ---
History of Present Illness History of Present Illness Date Patient Seen: 09/20/21 Time Patient Seen: 10:27 Chief complaint: rt leg infection Narrative: Well known to the facility for treatment of cellulitis of right thigh with immature abscess. Discharged on the no changes in comorbidities. Readmitted with mature 7cm x 10cm abscess right anterior thigh. Painful, no fever, no cough. No diarrhea. Pain is throbbing, sharp and focal. Patient History Medical History Cellulitis of right thigh Chronic back pain Chronic kidney disease Chronic liver disease Drug abuse Essential hypertension Hemochromatosis Hypothyroid IVDU (intravenous drug user) Methadone maintenance therapy patient Myocardial infarction Family & Social History Family History Father Colon cancer Other Cancer Social History: household members none Safety & Behavioral: Feels Safe in Current Yes Environment Tobacco & Substance use: Tobacco type cigarettes Smoking Status Current every day smoker Smoking packs per day 1 alcohol intake never alcohol intake frequency other Substance Use Type marijuana,prescription drug Meds Home Medications and Allergies Home Medications Medication Instructions Recorded Confirmed Type amlodipine 10 mg tablet (Norvasc) 10 mg PO DAILY 04/06/20 09/20/21 History levothyroxine 100 mcg tablet 200 mcg PO DAILY 04/06/20 09/20/21 History methadone 10 mg tablet 145 mg PO DAILY 04/06/20 09/20/21 History Allergies Allergy/AdvReac Type Severity Reaction Status Date / Time unknown antibiotic Allergy Oral Uncoded 09/20/21 10:08 Abx-trips to the ER Exam Vital Signs (past 8 hours): - 09/20/21 07:47 09/20/21 10:11 Temperature 98.2 F 98.3 F Pulse Rate 96 H 78 Respiratory Rate 18 16 Blood Pressure 176/108 H 145/105 H Pulse Oximetry 100 94 Oxygen Delivery Method Room Air Const General: cooperative and acute distress Nutritional Appearance: obese HENMT Head: normal to inspection, normocephalic and atraumatic Eyes General: appearance normal, both eyes and all related structures Neck Neck: trachea midline Chest Chest: normal inspection of the chest Resp Effort & Inspection: normal respiratory effort and able to speak in complete sentences Cardio Rate: tachycardic Rhythm: regular rhythm GI Inspection: normal to inspection Palpation: soft Skin Other: large right thigh, anterior abscess. 10 cm x 7 cm. Neuro General: patient alert, patient awake and patient oriented x3 Extrem Other: right thigh abscess Psych Appearance: grossly normal Attitude: cooperative Judgment: judgment good Objective Labs Result Diagrams: 09/20/21 08:10 09/20/21 08:10 Labs: Laboratory Results - last 24 hr 09/20/21 09/20/21 09/20/21 08:10 08:10 08:10 WBC 10.2 RBC 4.57 Hgb 14.5 Hct 42.2 MCV 92.3 MCH 31.6 MCHC 34.3 RDW 13.7 Plt Count 333 Neut % (Auto) 70.2 Lymph % (Auto) 21.0 L [place] % (Auto) 6.1 Eos % (Auto) 1.7 L Baso % (Auto) 1.0 Neut # (Auto) 7100 H Lymph # (Auto) 2100 [place] # (Auto) 600 Eos # (Auto) 200 Baso # (Auto) 100 Sodium 141 Potassium 3.9 Chloride 104 Carbon Dioxide 32 BUN 12 Creatinine 0.74 Estimated GFR > 60 BUN/Creatinine Ratio 16.2 Glucose 113 H Lactate 1.2 Calcium 10.1 Total Bilirubin 0.3 AST 22 ALT 21 Alkaline Phosphatase 105 Total Protein 7.9 Albumin 4.1 Globulin 3.8 Albumin/Globulin Ratio 1.1 Lipase 21 L Procalcitonin 0.06 SARS-CoV-2 (PCR) 09/20/21 09:00 WBC RBC Hgb Hct MCV MCH MCHC RDW Plt Count Neut % (Auto) Lymph % (Auto) [place] % (Auto) Eos % (Auto) Baso % (Auto) Neut # (Auto) Lymph # (Auto) [place] # (Auto) Eos # (Auto) Baso # (Auto) Sodium Potassium Chloride Carbon Dioxide BUN Creatinine Estimated GFR BUN/Creatinine Ratio Glucose Lactate Calcium Total Bilirubin AST ALT Alkaline Phosphatase Total Protein Albumin Globulin Albumin/Globulin Ratio Lipase Procalcitonin SARS-CoV-2 (PCR) Negative Assessment & Plan Assessment & Plan narrative: right thigh abscess, htn on admit likely pain related and chronic. Plan: I and D with drain placement and discharge later today. COVID-19 COVID-19 status: Negative Time Spent With Patient Time with patient: less than 30 minutes Critical Care time: I spent a total of [] minutes of critical care time on this patient's care today; this time is exclusive of procedural time.
[2021-09-20] MEDS: LACTATED RINGERS 1,000 ML 42 ML IV (10:56)
--- NOTE | 2021-09-20 12:01 | SUR.OPER ---
Supine on padded OR bed, head on pillow, arms secured on padded arm boards at <90 degrees abduction, legs uncrossed, safety belt at thigh, tape over blanket over lower legs. As directed by surgeon
--- NOTE | 2021-09-20 12:09 | PM.OP.1 ---
Operative Date/Time/Diagnoses Date of procedure: 09/20/21 Time of procedure: 12:09 Pre-op diagnosis: right thigh abscess Post-op diagnosis: same Procedure & Clinicians Procedure: I and D of right thigh abscess Same procedure as scheduled: Yes Indications: Right thigh abscess Surgeon: Miguelina Cabral Click Yes if Unassisted: Yes Anesthesia Type: General Operative Notes Findings: Large right anterior thigh abscess with loculations. Measuring 10 cm x 8 cm. Subcutaneous tissue only. I and D with drain placement Closure Type: not applicable Specimen(s): none sent (Culture of right thigh abscess) Applied: drain(s) (Quarter-inch Claudia drain) Estimated Blood Loss (mL): 20 Procedure in detail: Preop diagnosis: Right thigh abscess Postop diagnosis: Same Operative procedure: I and D of right thigh abscess Surgeon: Nelly Cabral MD Anesthesiologist: Renee Yan MD Findings: Large 10 cm by a cm abscess cavity with purulent drainage. Procedure: Patient placed in a supine position. Prepped and draped sterile fashion to expose his left thigh. Fifteen blade was used to incise sharply the abscess in the most cephalad portion as well as the most dependent portion. Content was drained. Septations were broken down. Entocort her inch Claudia drain was placed between the 2 incisions and sutured to itself with 3-0 nylon. Hemostasis achieved with direct pressure. Dry dressings were placed along with Coban. Patient was awakened, extubated, taken to recovery room in stable condition needle, instrument, sponge count correct. Blood loss: 20 mL Specimen: Culture of right thigh abscess Complications: none Post-operative Condition: stable Disposition: PACU
--- NOTE | 2021-09-20 12:12 | PM.PROC.1 ---
Procedures Date/Time Date of procedure: 09/20/21 Time of procedure: 12:13 General Procedure description: Left subclavian vein triple-lumen central venous access. Complications: none Central Line Placement Time out performed: Yes Patient placed on monitor/pulse ox: Yes MD prep: mask, gown and gloves Central line prep: Chlorhexidine scrub Local anesthesia used: lidocaine 1% Amount of anesthesia used (ml): 5 Ultrasound used for placement: No Central line lumen inserted: triple Post procedure: sutured in place, good blood return, all ports aspirated, flushed, capped and sterile dressing applied Patient tolerated procedure: well Complications: none
[2021-09-20] MEDS: HYDROMORPHONE 2 MG INJ IV ×4 (12:25→12:53)
--- NOTE | 2021-09-20 12:29 | SUR.PHASEI ---
Patient writhing around in pain after waking; medicated as ordered. Explained to patient that he would not be pain-free today and that due to his history of IVDA use and methadone, he would be challenging to get comfortable but that the nursing staff would try to get him to a more acceptable level of pain. V/U. PCXR ordered for left subclavian IV placement.
[2021-09-20] MEDS: ONDANSETRON 4 MG/2 ML INJ IV (12:40)
[2021-09-20] MEDS: fentaNYL 100 MCG/2 ML INJ IV ×2 (12:40→12:49)
[2021-09-20] MEDS: LORazepam 2 MG/ML INJ 0.25 MG IV ×2 (12:50→12:55)
--- NOTE | 2021-09-20 12:53 | SUR.PHASEI ---
Patient seems to be settling down and a bit more comfortable, not moaning as much. Thankful for the medication.
[2021-09-20] MEDS: HYDROMORPHONE 2 MG TABLET PO (13:24)
[2021-09-20] MEDS: PIPERACILLIN/TAZO 4.5 GM in SODIUM CHLORIDE 0.9% 100 ML 200 ML IV (14:49)
[2021-09-20] MEDS: GABAPENTIN 300 MG CAPSULE PO (14:50)
[2021-09-20] MEDS: AMLODIPINE 5 MG TABLET 10 MG PO (14:50)
--- NOTE | 2021-09-20 17:08 | PC.NURSE ---
Addendum entered by Sue Noriega R.N. 09/20/21 18:03: Patients subclavian central line taken out. Head of bed flat, sutures removed from patient, and he bared down as line came out of his neck. Vaseline dressing with 4x4 and tegaderm applied to neck. Patient is lying flat and will be discharged after 30 minutes. He tolerated procedure well. Original Note: Assess- Patients has a dressing to his r.thigh with lety wrap. He denies or discomfort and his dose of iv antibiotic has infused. He will be going home at 6pm. Subclavian line will be taken out and paperwork gone over at 1730.
--- NOTE | 2021-09-20 18:06 | PC.NURSE ---
Pt is getting ready to discharge, antibiotic has been infused, discharge instructions have been provided. PICC line was just removed, catheter was intact and site is dressed. Pt is laying flat in bed for a few minutes post removal and will be leaving the hospital soon.
--- NOTE | 2021-09-26 16:41 | PC.NURSE ---
Late Entry; Piperacillin infusion initiated 09/20/21 at 14:49 complete at 15:20.
== END 2021-09-20 18:30 | disposition home or self-care (01) ==
LOC: ED 08:36 → AC 08:46
PROVIDERS: Admitting Provider Surgery; Emergency Provider Emergency Medicine; PCP Nurse Practitioner Family; Referring Provider Emergency Medicine; Visit Provider Surgery
PROC: (CPT 10060; principal; 2021-09-20 10:30)
DX: L02.415 Cutaneous abscess of right lower limb (principal); F11.90 Opioid use, unspecified, uncomplicated; F17.210 Nicotine dependence, cigarettes, uncomplicated; E03.9 Hypothyroidism, unspecified; Z20.822 Contact with and (suspected) exposure to COVID-19
CPT/HCPCS: 10060; 36415; 71045; 80053; 83605; 83690; 84145; 85025; 87040; 87070; 87075; 87077; 87147; 87186; 87205; 87635; 96361; 96365; 96375; 96376; 99218; 99283; 99284; C9803; G0378; J1170; J2060; J2405; J2543; J2704; J3010

== ENCOUNTER 2021-10-12 14:57 | Emergency (ER) | payer OTHER, MEDICAID, SELFPAY ==
[2021-09-20 14:06] VITALS: BMI 34.2
[2021-10-12 15:54] VITALS: BP 152/101; PULSE 96; RESP 16; TEMP 36.1; O2SAT 96; BMI 34.2
--- NOTE | 2021-10-12 17:26 | DI.US.S_ITS ---
PROCEDURE: US [facility] VENOUS LOW EXTREM RT INDICATIONS: Right lower leg swelling, r/o DVT TECHNIQUE: Real-time imaging, as well as color and pulse Doppler interrogation, were performed of the lower extremity deep veins from the inguinal ligament to the popliteal fossa. COMPARISON: [facility], [facility] VENOUS LOW EXTREM RT, 09/15/2021, 14:48. FINDINGS: The common femoral, femoral and popliteal veins are normally compressible, and free of intraluminal thrombus. Color and pulse Doppler demonstrate normal phasic intraluminal flow. There is normal augmentation response to distal compression maneuver. Mildly prominent inguinal lymph node on the right. Subcutaneous soft tissue edema without focal fluid collection. IMPRESSION: Negative for deep venous thrombosis of the right lower extremity. Dictated by: Paxton Copeland M.D. on 10/12/2021 at 18:21 Approved by: Paxton Copeland M.D. on 10/12/2021 at 18:22
== END 2021-10-12 19:09 | disposition left against medical advice (07) ==
PROVIDERS: Emergency Provider Emergency Medicine; PCP Nurse Practitioner Family
DX: R60.9 Edema, unspecified (principal)
CPT/HCPCS: 93971; 99281

== ENCOUNTER → 2023-11-12 08:13 | Outpatient (CLI) | payer OTHER, MEDICAID, SELFPAY ==
[2021-09-20 14:06] VITALS: BMI 34.2
--- NOTE | 2023-11-12 08:15 | DI.US.S_ITS ---
PROCEDURE: US [facility] VENOUS LOW EXTREM RT INDICATIONS: right leg pain and swelling TECHNIQUE: Real-time imaging, as well as color and pulse Doppler interrogation, were performed of the lower extremity deep veins from the inguinal ligament to the popliteal fossa, with documentation of the visualized calf veins. COMPARISON: [facility], , [facility] VENOUS LOW EXTREM RT, 10/12/2021, 17:42. FINDINGS: The common femoral, femoral, popliteal, and the visualized calf veins are normally compressible, and free of intraluminal thrombus. Color and pulse Doppler demonstrate normal phasic intraluminal flow. There is normal augmentation response to distal compression maneuver. IMPRESSION: No findings of lower extremity deep venous thrombosis. Dictated by: Lety Ayoub M.D. on 11/12/2023 at 9:43 Approved by: Lety Ayoub M.D. on 11/12/2023 at 9:43
== END ==
PROVIDERS: Referring Provider Physician Assistant; Visit Provider Physician Assistant
DX: I82.409 Acute embolism and thrombosis of unspecified deep veins of unspecified lower extremity (principal); R22.41 Localized swelling, mass and lump, right lower limb
CPT/HCPCS: 93971